=== PATIENT | female | born 2000 | race Caucasian/White ===

== ENCOUNTER 2023-06-01 10:51 | Outpatient (CLI) | payer OTHER, SELFPAY ==
--- NOTE | 2023-06-05 15:16 | P.PCNHOL_ITS ---
Holter/Event Monitor Holter/Event Monitor Date of procedure: 06/05/23 Holter/Event Procedure: 48 Hr Holter Monitor Diagnosis: Palpitation Indications: Young woman with palpitations Image/Tracing Quality: Good Finding: The patient was monitored for 48 hours. The underlying rhythm was sinus with an average heart rate of 73 beats per minute (range 643-138 ppm). On the 1 PVC was seen. Six hundred ninety-eight APCs were seen. There were 135 atrial couplets but no SVT or atrial fibrillation. No ventricular tachycardia. No pauses or AV block. No symptoms were recorded. Conclusion: 1. Fairly unremarkable Holter monitor 2. Low frequency of APCs were seen 3. No symptoms recorded
== END 2023-06-01 10:52 | disposition home or self-care (01) ==
LOC: ANHCARD 10:52
PROVIDERS: PCP Pediatrics
DX: R00.2 Palpitations (principal)
CPT/HCPCS: 93225; 93226

== ENCOUNTER 2023-08-24 10:58 | Outpatient (CLI) | payer OTHER, SELFPAY ==
--- NOTE | ~2023-08-24 | US_ITS ---
US breast BI complete DATE: 08/24/2023 11:46 INDICATION: Bilateral breast pain TECHNIQUE: Real-time imaging of both complete breasts including all 4 quadrants and subareolar areas COMPARISON: None FINDINGS: No suspicious mass or shadowing or other significant abnormality of either breast is detect ed. IMPRESSION: No sonographic evidence of malignancy Reviewed, dictated and finalized at [facility]. 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
== END 2023-08-24 10:59 | disposition home or self-care (01) ==
PROVIDERS: Visit Provider Nurse Practitioner Obstetrics & Gynecology
DX: N64.4 Mastodynia (principal)
CPT/HCPCS: 76641

== ENCOUNTER 2024-01-12 06:50 | Emergency (ER) | payer OTHER, SELFPAY ==
[2024-01-12 06:53] VITALS: BP 113/73; PULSE 91; RESP 20; TEMP 36.3; O2SAT 100
[2024-01-12 07:53] VITALS: BP 100/76; PULSE 53
[2024-01-12 07:54] VITALS: BP 100/73; BP 100/76; PULSE 74; PULSE 91; RESP 16; O2SAT 100
[2024-01-12 07:56] VITALS: BP 101/79; PULSE 75
[2024-01-12] MEDS: SODIUM CHLORIDE 0.9% IV 1,000 ML 999 ML IV CONT (08:02)
--- NOTE | 2024-01-12 08:11 | ED.HA ---
HPI - Headache General Chief Complaint: Headache Stated Complaint: headache Time Seen by Provider: 01/12/24 07:29 History of Present Illness HPI Narrative: Pt says she was just diagnosed with orthostatic hypotension. today pt developed a BAUGH at work and felt light headed like she was going to pass out. Pt denies CP ro SOB aor one sided weakness. BAUGH is mild across forehead. Pt has no history of migraines. Pt did not take anything for her BAUGH. Related Data Home Medications Medication Instructions Recorded Confirmed levonorgestrel 120 mcg-e.estradiol 1 patch transdermal Q7D 04/13/23 04/13/23 30 mcg/24 hr weekly transderm patch (Twirla) meclizine 25 mg tablet 25 mg PO TID 04/13/23 04/13/23 prochlorperazine maleate 10 mg 10 mg PO Q8H PRN 04/13/23 04/13/23 tablet (Compazine) Allergies Allergy/AdvReac Type Severity Reaction Status Date / Time blueberry Allergy Intermediate Rash Verified 04/13/23 11:19 methylphenidate Allergy Intermediate Hallucinati Verified 04/13/23 11:19 [From Concerta] ng kiwi Allergy Unknown Hallucinati Verified 04/13/23 11:19 ng Review of Systems Review of Systems: All systems reviewed & are unremarkable except as noted in HPI and below PMFSH Past Medical History Medical History Anxiety Chronic sinusitis Deviated septum STD exposure Surgical History Surgical History [place] teeth extracted (~07/2022) Family History Family History Grandparent Cerebrovascular accident Diabetes mellitus Cancer Heart disease Thyroid disorder Father Depression Anxiety Alcoholism Mother Alcoholism Anxiety Depression Asthma Sibling Alcoholism Anxiety Asthma Depression Social History Social History Social History: Caffeine-coffee Smoking status: Smoker, status unknown Tobacco type: e-cigarettes/vaping Alcohol intake: current Alcohol use details: occasionally Substance use: never Substance use type: does not use Lack of Transportation: No Lack of Food: Never True Current Housing: I Have Housing Concerned About Future Housing: No Difficulty Paying Gas/Electric Bills: No Difficulty Paying for Meds: No Currently Unemployed: No Education: High School Diploma/GED Difficulty w/ Childcare or Family Care: No Agree to blood products: Yes Exam Const: General: healthy appearing and no acute distress Nutritional Appearance: well nourished Orientation/consciousness: patient oriented x3 Limitations: no limitations HENMT: Head: normal to inspection Eyes: Conjunctivae: conjunctivae normal Pupils: Equal, round and reactive pupils present EOM: EOMs intact bilaterally Direct Ophthalmoscopy: photophobia Neck: Neck: normal visual inspection Resp: Effort & Inspection: normal respiratory effort Auscultation: clear to auscultation bilaterally Cardio: Rate: regular rate Rhythm: regular rhythm GI: GI Palp: Yes Soft to palpation and No Tenderness to palpation present (GI) Auscultation: normal bowel sounds Skin: General skin exam: normal color Rashes: no rashes Wounds: no wounds Neuro: General: patient oriented x3, moves all extremities, no meningeal signs, no focal motor deficits and CN's II-XI intact bilaterally Cranial nerves: Yes Nystagmus not present Speech: normal speech Gait exam (Neuro): Normal gait present Extrem: General: normal to inspection and no clubbing, cyanosis or edema Psych: Mental Status: mental status grossly normal Affect: normal affect Attitude: cooperative Course Vital Signs Vital signs: Vital Signs Temperature 97.4 F L 01/12/24 06:53 Pulse Rate 91 01/12/24 06:53 Respiratory Rate 20 01/12/24 06:53 Blood Pressure 113/73 01/12/24 06:53 Pulse Oximetry 100
[2024-01-12 08:30] VITALS: BP 100/76; PULSE 68; RESP 16; TEMP 36.6; O2SAT 98
--- NOTE | 2024-01-12 08:42 | PC.NURSE ---
refused all medication except NS denies BAUGH or nausea
== END 2024-01-12 08:46 | disposition home or self-care (01) ==
PROVIDERS: Emergency Provider Emergency Medicine
DX: R51.9 Headache, unspecified (principal); J32.9 Chronic sinusitis, unspecified; F17.290 Nicotine dependence, other tobacco product, uncomplicated; Z79.899 Other long term (current) drug therapy
CPT/HCPCS: 99283; J7030

== ENCOUNTER 2024-03-04 10:44 | Outpatient (CLI) | payer OTHER, SELFPAY ==
[2024-03-04 11:35] LABS: Beta HCG Quantitative < 2.39 mIU/ML
== END 2024-03-04 10:45 | disposition home or self-care (01) ==
PROVIDERS: Visit Provider Obstetrics & Gynecology
DX: Z30.9 Encounter for contraceptive management, unspecified (principal)
CPT/HCPCS: 36415; 84702

== ENCOUNTER 2025-05-20 18:03 | Emergency (ER) | payer BC, SELFPAY ==
--- OUTSIDE RECORDS SUMMARY | 2024-11-24 07:00 | XMS_ITS ---
Author Organization [facility] Address [address] [place] [address] Care Team Providers Care Market Maker Name Role Phone Roman Bc Primary Care Provider [phone] [facility], [facility] Unavailable U navailable REASON FOR VISIT FMLA paper work f/u Social History Sex Assigned At : Social History Observation Description Sex Assigned At Female Encounters Encounter Location Date Provider Diagnosis [address] [phone] 11/24/2024 Bc Owens Plan Of Treatment No Information Progress Notes * Denita PRICEDOB:2000 (24 yo F)Acc No.[id number]:11/24/2024 UNLOCKED PROGRESS NOTE Patient: Dominique FARRISail Provider: Kim Owens APN :2000 A ge:24 Y S ex:Female Date:11/24/2024 Address:[address] [place], [place] [id number] Subjective: * Chief Complaints: * 1 . FMLA paper work f/u. * Medical History: Objective: * Vitals: Assessment: Plan: * Treatment: * * Electronic signature of Bc Owens on 05/20/2025 at 06:06 PM FEED GRINDER Sign off status: Pending * Provider: Kim Owens APN Date: 0 11/24/2024 Generated for Nena Tongg/Angelica on: 1 07/20/2024 06:06 PM FEED GRINDER
[2025-05-20 18:06] VITALS: BP 110/72; PULSE 76; RESP 16; TEMP 36.8; O2SAT 100
--- OUTSIDE RECORDS SUMMARY | 2025-05-20 18:06 | XMS_ITS | Clinical Summary ---
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 Gender Identity Not on file Sexual Orientation Not on file Plan of Treatment Health Maintenance Due Date Last Done Comments Cervical Cancer Screening Pa p Smear (Age 21 to 29) Every 3 Years 1998 Cervical Cancer Screening 1998 Annual Physical 2001 HPV Vaccines (1 - 3-dose series) 2013 Hepatitis C 2016 DTaP, Tdap and Td Vaccines ( 1 - Tdap) 2017 Hepatitis B Vaccines (1 of 3 - 19+ 3-dose series) 2017 COVID-19 Vaccine ( - 2024-2 6 season) 2025 Influenza Adult (#1) 2025 Hepatitis A Vaccines Aged Out No long er eligible based on patient's age to complete this topic Meningococcal B Vaccine Aged Out No l onger eligible based on patient's age to complete this topic Meningococcal Vaccine Aged Out No tiffanie chayo eligible based on patient's age to complete this topic Pneumococcal Vaccine: Pediat rics (0 to 5 Years) and At-Risk Patients (6 to 49 Years) Aged Out No longer eligible b ased on patient's age to complete this topic RSV Immunizations Under 20 Months Aged Out No longer eligible based on patient's age to complete this topic
--- OUTSIDE RECORDS SUMMARY | 2025-05-20 18:06 | XMS_ITS | Encounter Summary ---
Author Organization [facility] Address [address] [place] [address] Care Team Providers Care Addictions Counselor Assistant Name Role Phone Kajal Lyon MD Primary Care Provider [phone] Reason for Visit * Reason Onset Date Comments SAMSON CESPEDES) 05/16/2025 PLAN EXCLUSION Encounter Details Date Type Department Care Team (Late st Contact Info) Description 05/16/2025 Telephone [facility] Clinical Support [address] [place] [phone] Chio Yen, FINISHER FINE DIAMOND DIES [address] [place] [address] SAMSON CESPEDES) (PLAN EXCLUSION) Social History Tobacco Use Types Packs/Day Years Used Date Smoking Tobacco: Never Smokeless Tobacco: Never Alcohol Use Standard Drinks/Week Comments Yes 0 (1 standard drink = 0.6 oz pur e alcohol) occassional Feeling Safe Answer Date Recorded Are you in a relationship wi th someone who hurts you emotionally and/or physically? 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 BIOLOGIST Appointment [facility] [address] [phone] Chio Yen, FINISHER FINE DIAMOND DIES [address] [place] [place] [address] documented as of this encounter Visit Diagnoses Not on filedocumented in this encounter Additional Health Concerns Assessment Noted Time PHQ-9 Depression Total Score: 4 01/27/20 24 9:00 AM CDT documented as of this encounter Care Teams Addictions Counselor Assistant Relationship Specialty Start Date End Date Kajal Lyon MD [address] [place] [phone] PCP - General Internal Medicine 12/02/23 documented as of this encounter
--- OUTSIDE RECORDS SUMMARY | 2025-05-20 18:06 | XMS_ITS | Clinical Summary ---
Author Organization [facility] Address [address] [place] [phone] Care Team Providers Care Digital Account Manager Name Role Phone Miscellaneous, Not In File Primary Care Provider Unavailable Allergies Active Allergy Reactions Criticality Noted Date Comments Blueberry Rash Medium 06/18/2023 Methylphenidate Hallucinations Medium 06/18/2023 Venlafaxine Unknown 01/30/2025 Kiwi Anaphylaxis High 06/18/2023 Medications rosuvastatin calcium (ROSUVASTATIN ORAL) Take by mouth Active famotidine (PEPCID) 40 mg tablet Take 1 tablet (40 mg total) by mouth nightly as needed for heartburn 20 tablet 3 Active ibuprofen (ADVIL,MOTRIN) 400 mg tabletIndicatio ns:Pain Take 1 tablet (400 mg total) by mouth every 6 (six) hours as needed for pain 15 tablet 5 Active Medical History Medical History Date Comments Vertigo BPPV (benign paroxysmal positional vertigo) Social History Tobacco Use Types Packs/Day Years Used Date Smoking Tobacco: Never Assessed Personal Safety Answer Date Recorded Have you ever been in or are you currently in a harmful physical or emotional relationship or is someone making you feel afraid or unsafe? 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 Gender Identity Not on file Sexual Orientation Not on file Last Filed Vital Signs Vital Sign Reading Time Taken Comments Blood Pressure 114/92 01/30/2025 11:15 AM CDT Pulse 53 01/30/2025 11:30 AM CDT Temperature 36.8 C (98.3 F) 01/30/2025 8:16 AM CDT Respiratory Rate 16 01/30/2025 8:16 AM CDT Oxygen Saturation 98% 01/30/2025 11:30 AM CDT Inhaled Oxygen Concentration - - Weight 68 kg (150 lb) 01/30/2025 8:16 AM CDT Height 157.5 cm (5' 2) 01/30/2025 8:16 AM CDT Body Mass Index 27.44 01/30/2025 8:16 AM CDT Plan of Treatment Health Maintenance Due Date Last Done Comments Cervical Cancer Screening 1998 Depression Screening 1998 Hepatitis C Screening 1998 HPV Vaccines (1 - 3-dose series) 2013 Regular Well Visit/Exam 18-64 2016 DTaP/Tdap/Td Vaccine (7 - Td or Tdap) 03/11/2020 03/11/2010, 03/14/2004, 01/05/2001, Additional history exists Covid-19 Vaccine (3 - 2024-2 6 season) 2025 06/11/2021, 05/20/2021 Influenza Vaccine (#1) 2025 05/20/2010 Hepatitis B Screening Completed 03/13/1999 , 01/14/1999, 01/14/1999, Additional history exists Pneumococcal vaccine <65 Completed 01/05/2001 Varicella Vaccines Completed 03/11/2010, 01/05/2001 Care Teams Digital Account Manager Relationship Specialty Start Date End Date Miscellaneous, Not In File PCP - General 06/18/23
--- OUTSIDE RECORDS SUMMARY | 2025-05-20 18:06 | XMS_ITS | Clinical Summary ---
Author Organization [facility] [employer] Address [address] [place] [address] Care Team Providers Care Final Inspector Name Role Phone Carlos Dickerson APRN-REAL ESTATE ADMINISTRATOR Primary Care Provider Source Comments [facility] [employer],non-owned Affiliates and Associated Physician Practices is amultiple site organization consisting of ambulatory clinics and hospital sitesin [place], [place], [place] and [place]. This disclosure is being madepursuant to the Care Everywhere program and may not contain all information available regarding this patient. Last updated 18.[facility] [employer] Allergies Active Allergy Reactions Criticality Noted Date Comments Methylphenidate Other 02/27/2022 Patient reports hallucinations Medications * Be aware that medications may not be up to date on this document. Alwaysverify current medications with the patient. gabapentin (Neurontin) 100 MG capsule gabapentin 100 mg capsule TAKE 1 CAPSULE BY MOUTH THREE TIMES A DAY FOR 30 DAYS Active Active Problems Problem Noted Date Diagnosed Date Injury of right ankle 03/05/2022 Comments Yes Social History Tobacco Use Types Packs/Day Years Used Date Smoking Tobacco: Never Smokeless Tobacco: Never Alcohol Use Standard Drinks/Week Comments Never 0 (1 standard drink = 0.6 oz pur e alcohol) AUDIT-C Answer Date Recorded Frequency of Alcohol Consumption Never 04/13/2019 Average Number of Drinks Not on file 019 Frequency of Binge Drinking Not on file 03/20 Comments Yes Sex and Gender Information Value Date Recorded Sex Assigned at Not on file Legal Sex Female 3:10 PM CDT Gender Identity Not on file Sexual Orientation Not on file Last Filed Vital Signs Vital Sign Reading Time Taken Comments Blood Pressure 96/64 02/27/2022 6:02 PM CDT Pulse 52 02/27/2022 6:02 PM CDT Temperature 36.8 C (98.2 F) 02/27/2022 6:02 PM CDT Respiratory Rate 18 02/27/2022 6:02 PM CDT Oxygen Saturation 99% 02/27/2022 6:02 PM CDT Inhaled Oxygen Concentration - - Weight 61.7 kg (136 lb) 02/27/2022 6:02 PM CDT Height 157.5 cm (5' 2) 02/27/2022 6:02 PM CDT Body Mass Index 24.87 02/27/2022 6:02 PM CDT Plan of Treatment Health Maintenance Due Date Last Done Comments HIV SCREENING 2013 HPV VACCINE (1 - 3-dose series) 2013 HEPATITIS C SCREENING 10/31/2016 DTAP/TDAP/TD VACCINES (1 - Tdap) 2017 HEPATITIS B VACCINE (1 of 3 - 19+ 3-dose series) 2017 DEPRESSION SCREENING 07/19/2024 PAP SMEAR 10/15/2024 10/15/2021 COVID-19 VACCINE (3 - 2024-2 6 season) 2025 06/11/2021, 05/20/2021 INFLUENZA VACCINE (#1) 2025 ZOSTER VACCINE (1 of 2) 2048 Respiratory Syncytial Virus (RSV) Vaccine Pt: or over 60 yrs (1 - 1-dose 75+ series) 2073 HIB VACCINE Aged Out No longer eligi ble based on patient's age to complete this topic MENINGOCOCCAL (Group B) VACCINE SHARED DECISION-MAKING Aged Out No longer eligible based on patient's age to complete this topic MENINGOCOCCAL GROUPS A/C/Y/W VACCINE Aged Out No longer eligible b ased on patient's age to complete this topic PNEUMOCOCCAL VACCINE Aged Out No long er eligible based on patient's age to complete this topic Goals Goal Patient Goal Type Associated Problems Recent Progress Patient-Stated? Author Mobility General No Darleen Ardon, RN Note: Expected end date: 07/19/2019 The goal is to maintain or improve your mobility at the optimum level for you. Interventions: Insurance [facility] MEDICAID - [place] Care Teams Final Inspector Relationship Specialty Start Date End Date Carlos Dickerson, AIRPORT OPERATIONS SPECIALIST-REAL ESTATE ADMINISTRATOR [address] [place] [phone] PCP - General 03/24/19
--- OUTSIDE RECORDS SUMMARY | 2025-05-20 18:06 | XMS_ITS | Patient Health Record ---
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 dizziness), bupropion (tachycardia), guanfacine (sedating) Current/previous therapies: Follows up with therapy every other week Examination as documented - see pertinent aspects of office visit documentation. Pertinent diagnostics: LABS MONITORED BY PCP Differential diagnoses: RECOMMENDATIONS: STOP gabapentin due to tremors and START pregabalin as prescribed to assist with anxiety/panic - educated patient/guardian on adverse effects, risks and benefits, as well as alternative treatments INCREASE fluoxetine as prescribed to assist with anxiety/depression - educated patient/guardian on adverse effects, risks and benefits, as well as alternative treatments Continue/modify other medications as prescribed - educated patient/guardian on adverse effects, risks and benefits, as well as alternative treatments Consume well balanced diet, preferably low in saturated fats (solid at room temperature, such as butter, margarine, Crisco, etc) and low in sodium (<2,000mg per day). Consume plenty of fruits/vegetables, healthy grains/whole grains, unsaturated/health y fats (liquid at room temperature, such as olive oil, sunflower seed oil, canola, vegetable, etc.). Exercise regularly - Develop an exercise routine. 30 minutes of moderate exercise (walking at a brisk pace) 5 times per week is recommended. You should work hard enough to cause a sweat but still be able to talk with others while exercising. Exercise improves overall health - improves blood pressure and blood sugar, helps control weight, reduces stress, and improves mood. Practice stress reduction techniques, such as guided imagery, journaling, aromatherapy, acupuncture/acupre ssure, deep breathing, etc. Practice healthy sleep hygiene - maintain regular routine, no caffeine after 1PM, no exercise 1-2 hours prior to bedtime, keep bedroom dark and cool, no TV or electronics while in bed. Consider melatonin as needed. Consider cognitive behavioral therapy for insomnia (CBT-I). Consider/Continue therapy. Consider/Continue substance cessation therapy as needed - contact office if desiring medication assisted therapy. Manage co-morbid conditions. Continue monitoring symptoms - report persistent or worsening/concerni ng symptoms to the office or go to the ER. For mental health CRISIS, please reach out to [phone] (National Suicide and Crisis Lifeline), 911, go to the emergency department, or contact the [facility] Crisis Unit/Team. Follow up as scheduled in 4 weeks or sooner if necessary. Follow up with PCP and/or other specialists as advised. NEXT STEP: Conisder increasing fluoxetine pending response/tolerabil ity. Consider increasing Vraylar pending response/tolerabil ity. Consider increasing pregabalin pending response/tolerabil ity. Consider adjusting hydroxyzine as needed. Consider other medication adjustments as needed. 09/12/2024 Bipolar 1 disorder, depressed (ICD-10 - F31.9) r/o BPD Duration (acute/chronic), stability (controlled/uncont rolled): Chronic, slight improvement with recent medication adjustments, still some room for improvement, see HPI Current medications/effica cy: Somewhat, room for improvement Previous medication trials: Trileptal, Effexor, Lyrica, Abilify (effective but caused hypotension), Adderall, Vyvanse, Concerta, Remeron (nausea), Wellbutrin, Adderall XR, Trazodone, Prozac, Seroquel, Zoloft, Lamictal (headache, orthostatic hypotension exacerbation), Vistaril (headache), Propranolol (ineffective), Clonidine (bad reaction), Tenex (tired), Buspar (ineffective), Focalin, Ativan, Valium, Gabapentin, Strattera (BAUGH, dizziness), bupropion (tachycardia) Current/previous therapies: Follows up with therapy every week Examination as documented - see pertinent aspects of office visit documentation. Pertinent diagnostics: LABS MONITORED BY PCP Differential diagnoses: RECOMMENDATIONS: INCREASE cariprazine as prescribed - educated patient/guardian on adverse effects, risks and benefits, as well as alternative treatments INCREASE fluoxetine as prescribed to assist with anxiety/depression - educated patient/guardian on adverse effects, risks and benefits, as well as alternative treatments Continue/modify other medications as prescribed - educated patient/guardian on adverse effects, risks and benefits, as well as alternative treatments Consume well balanced diet, preferably low in saturated fats (solid at room temperature, such as butter, margarine, Crisco, etc) and low in sodium (<2,000mg per day). Consume plenty of fruits/vegetables, healthy grains/whole grains, unsaturated/health y fats (liquid at room temperature, such as olive oil, sunflower seed oil, canola, vegetable, etc.). Exercise regularly - Develop an exercise routine. 30 minutes of moderate exercise (walking at a brisk pace) 5 times per week is recommended. You should work hard enough to cause a sweat but still be able to talk with others while exercising. Exercise improves overall health - improves blood pressure and blood sugar, helps control weight, reduces stress, and improves mood. Practice stress reduction techniques, such as guided imagery, journaling, aromatherapy, acupuncture/acupre ssure, deep breathing, etc. Practice healthy sleep hygiene - maintain regular routine, no caffeine after 1PM, no exercise 1-2 hours prior to bedtime, keep bedroom dark and cool, no TV or electronics while in bed. Consider melatonin as needed. Consider cognitive behavioral therapy for insomnia (CBT-I). Consider/Continue therapy. Consider/Continue substance cessation therapy as needed - contact office if desiring medication assisted therapy. Manage co-morbid conditions. Continue monitoring symptoms - report persistent or worsening/concerni ng symptoms to the office or go to the ER. For mental health CRISIS, please reach out to [phone] (National Suicide and Crisis Lifeline), 911, go to the emergency department, or contact the [facility] Crisis Unit/Team. Follow up as scheduled in 4 weeks or sooner if necessary. Follow up with PCP and/or other specialists as advised. NEXT STEP: Conisder increasing fluoxetine pending response/tolerabil ity. Consider increasing Vraylar pending response/tolerabil ity. Consider increasing gabapentin pending response/tolerabil ity. Consider adjusting hydroxyzine as needed. Consider other medication adjustments as needed. 08/22/2024 Bipolar 1 disorder, depressed (ICD-10 - F31.9) r/o BPD Duration (acute/chronic), stability (controlled/uncont rolled): Chronic, slight improvement since starting Vraylar, still dealing with anxiety/depression , see HPI Current medications/effica cy: Somewhat, room for improvement Previous medication trials: Trileptal, Effexor, Lyrica, Abilify (effective but caused hypotension), Adderall, Vyvanse, Concerta, Remeron (nausea), Wellbutrin, Adderall XR, Trazodone, Prozac, Seroquel, Zoloft, Lamictal (headache, orthostatic hypotension exacerbation), Vistaril (headache), Propranolol (ineffective), Clonidine (bad reaction), Tenex (tired), Buspar (ineffective), Focalin, Ativan, Valium, Gabapentin, Strattera (BAUGH, dizziness), bupropion (tachycardia) Current/previous therapies: Follows up with therapy every week Examination as documented - see pertinent aspects of office visit documentation. Pertinent diagnostics: LABS MONITORED BY PCP Differential diagnoses: DISCUSSION DURING PREVIOUS APPOINTMENT: Patient and provider discuss restarting medications as currently prescribed MINUS bupropion. Patient mentions that she generally does best with a mood stabilizer, antidepressant, and antipsychotic. Provider explained that Vraylar is an antipsychotic/mood stbilizer - Vraylar helps with mood stability AND anxiety/depression . Provider and patient discussed only restarting currently prescribed medications and considering adding antidepressant/oth er medications one at a time as needed. DISCUSSION FROM PREVIOUS VISIT: Patient reports previous success with aripiprazole and lamotrigine - couldn't continue aripiprazole due to hypotension caused by medication, wondering if there is something similar to aripiprazole that she could try RECOMMENDATIONS: INCREASE cariprazine as prescribed - educated patient/guardian on adverse effects, risks and benefits, as well as alternative treatments START fluoxetine as prescribed to assist with anxiety/depression - educated patient/guardian on adverse effects, risks and benefits, as well as alternative treatments Continue/modify other medications as prescribed - educated patient/guardian on adverse effects, risks and benefits, as well as alternative treatments Consume well balanced diet, preferably low in saturated fats (solid at room temperature, such as butter, margarine, Crisco, etc) and low in sodium (<2,000mg per day). Consume plenty of fruits/vegetables, healthy grains/whole grains, unsaturated/health y fats (liquid at room temperature, such as olive oil, sunflower seed oil, canola, vegetable, etc.). Exercise regularly - Develop an exercise routine. 30 minutes of moderate exercise (walking at a brisk pace) 5 times per week is recommended. You should work hard enough to cause a sweat but still be able to talk with others while exercising. Exercise improves overall health - improves blood pressure and blood sugar, helps control weight, reduces stress, and improves mood. Practice stress reduction techniques, such as guided imagery, journaling, aromatherapy, acupuncture/acupre ssure, deep breathing, etc. Practice healthy sleep hygiene - maintain regular routine, no caffeine after 1PM, no exercise 1-2 hours prior to bedtime, keep bedroom dark and cool, no TV or electronics while in bed. Consider melatonin as needed. Consider cognitive behavioral therapy for insomnia (CBT-I). Consider/Continue therapy. Consider/Continue substance cessation therapy as needed - contact office if desiring medication assisted therapy. Manage co-morbid conditions. Continue monitoring symptoms - report persistent or worsening/concerni ng symptoms to the office or go to the ER. For mental health CRISIS, please reach out to [phone] (National Suicide and Crisis Lifeline), 911, go to the emergency department, or contact the [facility] Crisis Unit/Team. Follow up as scheduled in 3 weeks or sooner if necessary. Follow up with PCP and/or other specialists as advised. NEXT STEP: Conisder increasing fluoxetine pending response/tolerabil ity. Consider increasing Vraylar pending response/tolerabil ity. Consider increasing gabapentin pending response/tolerabil ity. Consider adjusting hydroxyzine as needed. Consider other medication adjustments as needed. 07/27/2024 Bipolar 1 disorder, depressed (ICD-10 - F31.9) r/o BPD 07/26/2024 Bipolar 1 disorder, depressed (ICD-10 - F31.9) r/o BPD Duration (acute/chronic), stability (controlled/uncont rolled): Chronic, unchanged from previous visit due to not having received prescription for Vraylar as recently prescribed, patient also wondering about medication adjustments to assist with anxiety/panic during upcoming , see HPI Current medications/effica cy: N/A Previous medication trials: Trileptal, Effexor, Lyrica, Abilify (effective but caused hypotension), Adderall, Vyvanse, Concerta, Remeron (nausea), Wellbutrin, Adderall XR, Trazodone, Prozac, Seroquel, Zoloft, Lamictal (headache, orthostatic hypotension exacerbation), Vistaril (headache), Propranolol (ineffective), Clonidine (bad reaction), Tenex (tired), Buspar (ineffective), Focalin, Ativan, Valium, Gabapentin, Strattera (BAUGH, dizziness), bupropion (tachycardia) Current/previous therapies: Follows up with therapy every week Examination as documented - see pertinent aspects of office visit documentation. Pertinent diagnostics: LABS MONITORED BY PCP Differential diagnoses: DISCUSSION DURING PREVIOUS APPOINTMENT: Patient and provider discuss restarting medications as currently prescribed MINUS bupropion. Patient mentions that she generally does best with a mood stabilizer, antidepressant, and antipsychotic. Provider explained that Vraylar is an antipsychotic/mood stbilizer - Vraylar helps with mood stability AND anxiety/depression . Provider and patient discussed only restarting currently prescribed medications and considering adding antidepressant/oth er medications one at a time as needed. DISCUSSION FROM PREVIOUS VISIT: Patient reports previous success with aripiprazole and lamotrigine - couldn't continue aripiprazole due to hypotension caused by medication, wondering if there is something similar to aripiprazole that she could try RECOMMENDATIONS: RESTART cariprazine as prescribed - educated patient/guardian on adverse effects, risks and benefits, as well as alternative treatments CONTINUE hydroxyzine as prescribed - educated patient/guardian on adverse effects, risks and benefits, as well as alternative treatments INCREASE gabapentin as prescribed - educated patient/guardian on adverse effects, risks and benefits, as well as alternative treatments START alprazolam as prescribed - educated patient/guardian on adverse effects, risks and benefits, as well as alternative treatments Continue/modify other medications as prescribed - educated patient/guardian on adverse effects, risks and benefits, as well as alternative treatments Consume well balanced diet, preferably low in saturated fats (solid at room temperature, such as butter, margarine, Crisco, etc) and low in sodium (<2,000mg per day). Consume plenty of fruits/vegetables, healthy grains/whole grains, unsaturated/health y fats (liquid at room temperature, such as olive oil, sunflower seed oil, canola, vegetable, etc.). Exercise regularly - Develop an exercise routine. 30 minutes of moderate exercise (walking at a brisk pace) 5 times per week is recommended. You should work hard enough to cause a sweat but still be able to talk with others while exercising. Exercise improves overall health - improves blood pressure and blood sugar, helps control weight, reduces stress, and improves mood. Practice stress reduction techniques, such as guided imagery, journaling, aromatherapy, acupuncture/acupre ssure, deep breathing, etc. Practice healthy sleep hygiene - maintain regular routine, no caffeine after 1PM, no exercise 1-2 hours prior to bedtime, keep bedroom dark and cool, no TV or electronics while in bed. Consider melatonin as needed. Consider cognitive behavioral therapy for insomnia (CBT-I). Consider/Continue therapy. Consider/Continue substance cessation therapy as needed - contact office if desiring medication assisted therapy. Manage co-morbid conditions. Continue monitoring symptoms - report persistent or worsening/concerni ng symptoms to the office or go to the ER. For mental health CRISIS, please reach out to [phone] (National Suicide and Crisis Lifeline), 911, go to the emergency department, or contact the [facility] Crisis Unit/Team. Follow up as scheduled in 2 weeks or sooner if necessary. Follow up with PCP and/or other specialists as advised. NEXT STEP: Consider increasing Vraylar pending response/tolerabil ity. Consider increasing gabapentin pending response/tolerabil ity. Consider adjusting hydroxyzine as needed. Consider other medication adjustments as needed. 07/18/2024 Bipolar 1 disorder, depressed (ICD-10 - F31.9) r/o BPD Duration (acute/chronic), stability (controlled/uncont rolled): Chronic, worse since recent abrupt discontinuation of medications, bupropion caused tachycardia, see HPI Current medications/effica cy: N/A - patient stopped all medications due to tachycardia from bupropion, see HPI Previous medication trials: Trileptal, Effexor, Lyrica, Abilify (effective but caused hypotension), Adderall, Vyvanse, Concerta, Remeron (nausea), Wellbutrin, Adderall XR, Trazodone, Prozac, Seroquel, Zoloft, Lamictal (headache, orthostatic hypotension exacerbation), Vistaril (headache), Propranolol (ineffective), Clonidine (bad reaction), Tenex (tired), Buspar (ineffective), Focalin, Ativan, Valium, Gabapentin, Strattera (BAUGH, dizziness), bupropion (tachycardia) Current/previous therapies: Follows up with therapy every week Examination as documented - see pertinent aspects of office visit documentation. Pertinent diagnostics: LABS MONITORED BY PCP Differential diagnoses: Patient and provider discuss restarting medications as currently prescribed MINUS bupropion. Patient mentions that she generally does best with a mood stabilizer, antidepressant, and antipsychotic. Provider explained that Vraylar is an antipsychotic/mood stbilizer - Vraylar helps with mood stability AND anxiety/depression . Provider and patient discussed only restarting currently prescribed medications and considering adding antidepressant/oth er medications one at a time as needed. DISCUSSION FROM PREVIOUS VISIT: Patient reports previous success with aripiprazole and lamotrigine - couldn't continue aripiprazole due to hypotension caused by medication, wondering if there is something similar to aripiprazole that she could try RECOMMENDATIONS: RESTART cariprazine as prescribed - educated patient/guardian on adverse effects, risks and benefits, as well as alternative treatments CONTINUE hydroxyzine as prescribed - educated patient/guardian on adverse effects, risks and benefits, as well as alternative treatments START gabapentin as prescribed - educated patient/guardian on adverse effects, risks and benefits, as well as alternative treatments Continue/modify other medications as prescribed - educated patient/guardian on adverse effects, risks and benefits, as well as alternative treatments Consume well balanced diet, preferably low in saturated fats (solid at room temperature, such as butter, margarine, Crisco, etc) and low in sodium (<2,000mg per day). Consume plenty of fruits/vegetables, healthy grains/whole grains, unsaturated/health y fats (liquid at room temperature, such as olive oil, sunflower seed oil, canola, vegetable, etc.). Exercise regularly - Develop an exercise routine. 30 minutes of moderate exercise (walking at a brisk pace) 5 times per week is recommended. You should work hard enough to cause a sweat but still be able to talk with others while exercising. Exercise improves overall health - improves blood pressure and blood sugar, helps control weight, reduces stress, and improves mood. Practice stress reduction techniques, such as guided imagery, journaling, aromatherapy, acupuncture/acupre ssure, deep breathing, etc. Practice healthy sleep hygiene - maintain regular routine, no caffeine after 1PM, no exercise 1-2 hours prior to bedtime, keep bedroom dark and cool, no TV or electronics while in bed. Consider melatonin as needed. Consider cognitive behavioral therapy for insomnia (CBT-I). Consider/Continue therapy. Consider/Continue substance cessation therapy as needed - contact office if desiring medication assisted therapy. Manage co-morbid conditions. Continue monitoring symptoms - report persistent or worsening/concerni ng symptoms to the office or go to the ER. For mental health CRISIS, please reach out to [phone] (National Suicide and Crisis Lifeline), 911, go to the emergency department, or contact the [facility] Crisis Unit/Team. Follow up as scheduled in 2 weeks or sooner if necessary. Follow up with PCP and/or other specialists as advised. NEXT STEP: Consider increasing Vraylar pending response/tolerabil ity. Consider increasing gabapentin pending response/tolerabil ity. Consider adjusting hydroxyzine as needed. Consider other medication adjustments as needed. 12/12/2024 Anxiety (ICD-10 - F41.9) See assessment and plan for bipolar I disorder 12/12/2024 Bipolar 1 disorder, depressed (ICD-10 - F31.9) r/o BPD Duration (acute/chronic), stability (controlled/uncont rolled): Chronic, anxiety/depression /ADHD remain stable, sleep not improved with starting doxepin, still some room for improvement, see HPI Current medications/effica cy: Somewhat, room for improvement Previous medication trials: Trileptal, Effexor (possible allergy?), Lyrica, Abilify (effective but caused hypotension), Adderall, Vyvanse, Concerta, Remeron (nausea), Wellbutrin (tried in adolescence, ineffective), Adderall XR, Trazodone, Prozac (unsure how this made her feel as she was on a lot of meds), Seroquel, Zoloft (ineffective), Lamictal (headache, exacerbation of orthostatic hypotension), Vistaril (headache), Propranolol (ineffective), Clonidine (bad reaction), Tenex (tired), Buspar (ineffective), Focalin, Ativan, Valium, Gabapentin (built up a tolerance in the past so became ineffective, been off for about 2 years, also causes tremors), Strattera (BAUGH, dizziness), bupropion (tachycardia), guanfacine (sedating) Current/previous therapies: Follows up with therapy every other week Examination as documented - see pertinent aspects of office visit documentation. 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 8 HOURS OF PTO FOR DOING SO, WILL PLAN TO HAVE RESULTS FAXED TO OFFICE Differential diagnoses: RECOMMENDATIONS: STOP doxepin due to inefficacy as discussed and START ramelteon as prescribed to assist with sleep - ADJUST alprazolam as prescribed to assist with sleep/anxiety/garcia c, ONLY TO BE USED ONCE NIGHTLY FOR SLEEP AND NEEDED FOR PANIC- educated patient/guardian on adverse effects, risks and benefits, as well as alternative treatments Continue/modify other medications as prescribed - educated patient/guardian on adverse effects, risks and benefits, as well as alternative treatments Consume well balanced diet, preferably low in saturated fats (solid at room temperature, such as butter, margarine, Crisco, etc) and low in sodium (<2,000mg per day). Consume plenty of fruits/vegetables, healthy grains/whole grains, unsaturated/health y fats (liquid at room temperature, such as olive oil, sunflower seed oil, canola, vegetable, etc.). Exercise regularly - Develop an exercise routine. 30 minutes of moderate exercise (walking at a brisk pace) 5 times per week is recommended. You should work hard enough to cause a sweat but still be able to talk with others while exercising. Exercise improves overall health - improves blood pressure and blood sugar, helps control weight, reduces stress, and improves mood. Practice stress reduction techniques, such as guided imagery, journaling, aromatherapy, acupuncture/acupre ssure, deep breathing, etc. Practice healthy sleep hygiene - maintain regular routine, no caffeine after 1PM, no exercise 1-2 hours prior to bedtime, keep bedroom dark and cool, no TV or electronics while in bed. Consider melatonin as needed. Consider cognitive behavioral therapy for insomnia (CBT-I). Consider/Continue therapy. Consider/Continue substance cessation therapy as needed - contact office if desiring medication assisted therapy. Manage co-morbid conditions. Continue monitoring symptoms - report persistent or worsening/concerni ng symptoms to the office or go to the ER. For mental health CRISIS, please reach out to [phone] (National Suicide and Crisis Lifeline), 911, go to the emergency department, or contact the [facility] Crisis Unit/Team. Follow up as scheduled in 2 months or sooner if necessary - patient requesting 2 month follow up due to starting a new job and having a lapse in insurance (new insurance won't be active until 2 months from now) Follow up with PCP and/or other specialists as advised. NEXT STEP: Conisder increasing doxepin pending response/tolerabil ity. Consider other medication adjustments as needed. 07/18/2024 Anxiety (ICD-10 - F41.9) See assessment and plan for bipolar I disorder 07/26/2024 Anxiety (ICD-10 - F41.9) See assessment and plan for bipolar I disorder 08/22/2024 Anxiety (ICD-10 - F41.9) See assessment and plan for bipolar I disorder 09/12/2024 Anxiety (ICD-10 - F41.9) See assessment and plan for bipolar I disorder 10/26/2024 Obsessional thoughts (ICD-10 - F42.8) See assessment and plan for bipolar I disorder 10/04/2024 Anxiety (ICD-10 - F41.9) See assessment and plan for bipolar I disorder 11/10/2024 Bipolar 1 disorder, depressed (ICD-10 - F31.9) r/o BPD Duration (acute/chronic), stability (controlled/uncont rolled): Chronic, improvement with recent medication adjustments, still some room for improvement, see HPI Current medications/effica cy: Somewhat, room for improvement Previous medication trials: Trileptal, Effexor (possible allergy?), Lyrica, Abilify (effective but caused hypotension), Adderall, Vyvanse, Concerta, Remeron (nausea), Wellbutrin (tried in adolescence, ineffective), Adderall XR, Trazodone, Prozac (unsure how this made her feel as she was on a lot of meds), Seroquel, Zoloft (ineffective), Lamictal (headache, exacerbation of orthostatic hypotension), Vistaril (headache), Propranolol (ineffective), Clonidine (bad reaction), Tenex (tired), Buspar (ineffective), Focalin, Ativan, Valium, Gabapentin (built up a tolerance in the past so became ineffective, been off for about 2 years, also causes tremors), Strattera (BAUGH, dizziness), bupropion (tachycardia), guanfacine (sedating) Current/previous therapies: Follows up with therapy every other week Examination as documented - see pertinent aspects of office visit documentation. 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 8 HOURS OF PTO FOR DOING SO, WILL PLAN TO HAVE RESULTS FAXED TO OFFICE Differential diagnoses: RECOMMENDATIONS: INCREASE pregabaline as prescribed to assist with anxiety/panic/slee p, USE THIS BEFORE USING ALPRAZOLAM - educated patient/guardian on adverse effects, risks and benefits, as well as alternative treatments INCREASE alprazolam as prescribed to assist with anxiety/panic, ONLY TO BE USED NEEDED - educated patient/guardian on adverse effects, risks and benefits, as well as alternative treatments Continue/modify other medications as prescribed - educated patient/guardian on adverse effects, risks and benefits, as well as alternative treatments Consume well balanced diet, preferably low in saturated fats (solid at room temperature, such as butter, margarine, Crisco, etc) and low in sodium (<2,000mg per day). Consume plenty of fruits/vegetables, healthy grains/whole grains, unsaturated/health y fats (liquid at room temperature, such as olive oil, sunflower seed oil, canola, vegetable, etc.). Exercise regularly - Develop an exercise routine. 30 minutes of moderate exercise (walking at a brisk pace) 5 times per week is recommended. You should work hard enough to cause a sweat but still be able to talk with others while exercising. Exercise improves overall health - improves blood pressure and blood sugar, helps control weight, reduces stress, and improves mood. Practice stress reduction techniques, such as guided imagery, journaling, aromatherapy, acupuncture/acupre ssure, deep breathing, etc. Practice healthy sleep hygiene - maintain regular routine, no caffeine after 1PM, no exercise 1-2 hours prior to bedtime, keep bedroom dark and cool, no TV or electronics while in bed. Consider melatonin as needed. Consider cognitive behavioral therapy for insomnia (CBT-I). Consider/Continue therapy. Consider/Continue substance cessation therapy as needed - contact office if desiring medication assisted therapy. Manage co-morbid conditions. Continue monitoring symptoms - report persistent or worsening/concerni ng symptoms to the office or go to the ER. For mental health CRISIS, please reach out to [phone] (National Suicide and Crisis Lifeline), 911, go to the emergency department, or contact the [facility] Crisis Unit/Team. Follow up as scheduled in 4 weeks or sooner if necessary. Follow up with PCP and/or other specialists as advised. NEXT STEP: Conisder increasing fluoxetine pending response/tolerabil ity. Consider increasing Vraylar pending response/tolerabil ity. Consider increasing pregabalin pending response/tolerabil ity. Consider adjusting hydroxyzine as needed. Consider other medication adjustments as needed. 11/21/2024 Bipolar 1 disorder, depressed (ICD-10 - F31.9) r/o BPD Duration (acute/chronic), stability (controlled/uncont rolled): Chronic, improvement with recent medication adjustments, still some room for improvement, see HPI Current medications/effica cy: Somewhat, room for improvement Previous medication trials: Trileptal, Effexor (possible allergy?), Lyrica, Abilify (effective but caused hypotension), Adderall, Vyvanse, Concerta, Remeron (nausea), Wellbutrin (tried in adolescence, ineffective), Adderall XR, Trazodone, Prozac (unsure how this made her feel as she was on a lot of meds), Seroquel, Zoloft (ineffective), Lamictal (headache, exacerbation of orthostatic hypotension), Vistaril (headache), Propranolol (ineffective), Clonidine (bad reaction), Tenex (tired), Buspar (ineffective), Focalin, Ativan, Valium, Gabapentin (built up a tolerance in the past so became ineffective, been off for about 2 years, also causes tremors), Strattera (BAUGH, dizziness), bupropion (tachycardia), guanfacine (sedating) Current/previous therapies: Follows up with therapy every other week Examination as documented - see pertinent aspects of office visit documentation. 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 8 HOURS OF PTO FOR DOING SO, WILL PLAN TO HAVE RESULTS FAXED TO OFFICE Differential diagnoses: RECOMMENDATIONS: START zolpidem as prescribed to assist with sleep, start with zolpidem alone, can add pregablin if needed - educated patient/guardian on adverse effects, risks and benefits, as well as alternative treatments CONTINUE alprazolam as prescribed to assist with anxiety/panic, ONLY TO BE USED NEEDED - educated patient/guardian on adverse effects, risks and benefits, as well as alternative treatments Continue/modify other medications as prescribed - educated patient/guardian on adverse effects, risks and benefits, as well as alternative treatments Consume well balanced diet, preferably low in saturated fats (solid at room temperature, such as butter, margarine, Crisco, etc) and low in sodium (<2,000mg per day). Consume plenty of fruits/vegetables, healthy grains/whole grains, unsaturated/health y fats (liquid at room temperature, such as olive oil, sunflower seed oil, canola, vegetable, etc.). Exercise regularly - Develop an exercise routine. 30 minutes of moderate exercise (walking at a brisk pace) 5 times per week is recommended. You should work hard enough to cause a sweat but still be able to talk with others while exercising. Exercise improves overall health - improves blood pressure and blood sugar, helps control weight, reduces stress, and improves mood. Practice stress reduction techniques, such as guided imagery, journaling, aromatherapy, acupuncture/acupre ssure, deep breathing, etc. Practice healthy sleep hygiene - maintain regular routine, no caffeine after 1PM, no exercise 1-2 hours prior to bedtime, keep bedroom dark and cool, no TV or electronics while in bed. Consider melatonin as needed. Consider cognitive behavioral therapy for insomnia (CBT-I). Consider/Continue therapy. Consider/Continue substance cessation therapy as needed - contact office if desiring medication assisted therapy. Manage co-morbid conditions. Continue monitoring symptoms - report persistent or worsening/concerni ng symptoms to the office or go to the ER. For mental health CRISIS, please reach out to [phone] ([employer] Suicide and Crisis Lifeline), 911, go to the emergency department, or contact the [facility] Crisis Unit/Team. Follow up as scheduled in 2 weeks or sooner if necessary. Follow up with PCP and/or other specialists as advised. NEXT STEP: Conisder increasing fluoxetine pending response/tolerabil ity. Consider increasing Vraylar pending response/tolerabil ity. Consider increasing pregabalin pending response/tolerabil ity. Consider adjusting hydroxyzine as needed. Consider other medication adjustments as needed. 06/14/2024 Anxiety (ICD-10 - F41.9) See assessment and plan for bipolar I disorder 11/28/2024 Bipolar 1 disorder, depressed (ICD-10 - F31.9) r/o BPD Duration (acute/chronic), stability (controlled/uncont rolled): Chronic, anxiety/depression /ADHD remain stable, sleep not improved with starting zolpidem, still some room for improvement, see HPI Current medications/effica cy: Somewhat, room for improvement Previous medication trials: Trileptal, Effexor (possible allergy?), Lyrica, Abilify (effective but caused hypotension), Adderall, Vyvanse, Concerta, Remeron (nausea), Wellbutrin (tried in adolescence, ineffective), Adderall XR, Trazodone, Prozac (unsure how this made her feel as she was on a lot of meds), Seroquel, Zoloft (ineffective), Lamictal (headache, exacerbation of orthostatic hypotension), Vistaril (headache), Propranolol (ineffective), Clonidine (bad reaction), Tenex (tired), Buspar (ineffective), Focalin, Ativan, Valium, Gabapentin (built up a tolerance in the past so became ineffective, been off for about 2 years, also causes tremors), Strattera (BAUGH, dizziness), bupropion (tachycardia), guanfacine (sedating) Current/previous therapies: Follows up with therapy every other week Examination as documented - see pertinent aspects of office visit documentation. 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 8 HOURS OF PTO FOR DOING SO, WILL PLAN TO HAVE RESULTS FAXED TO OFFICE Differential diagnoses: RECOMMENDATIONS: STOP zolpidem due to inefficacy and START doxepin to assist with sleep, can add pregablin if needed - educated patient/guardian on adverse effects, risks and benefits, as well as alternative treatments CONTINUE alprazolam as prescribed to assist with anxiety/panic, ONLY TO BE USED NEEDED - educated patient/guardian on adverse effects, risks and benefits, as well as alternative treatments Continue/modify other medications as prescribed - educated patient/guardian on adverse effects, risks and benefits, as well as alternative treatments Consume well balanced diet, preferably low in saturated fats (solid at room temperature, such as butter, margarine, Crisco, etc) and low in sodium (<2,000mg per day). Consume plenty of fruits/vegetables, healthy grains/whole grains, unsaturated/health y fats (liquid at room temperature, such as olive oil, sunflower seed oil, canola, vegetable, etc.). Exercise regularly - Develop an exercise routine. 30 minutes of moderate exercise (walking at a brisk pace) 5 times per week is recommended. You should work hard enough to cause a sweat but still be able to talk with others while exercising. Exercise improves overall health - improves blood pressure and blood sugar, helps control weight, reduces stress, and improves mood. Practice stress reduction techniques, such as guided imagery, journaling, aromatherapy, acupuncture/acupre ssure, deep breathing, etc. Practice healthy sleep hygiene - maintain regular routine, no caffeine after 1PM, no exercise 1-2 hours prior to bedtime, keep bedroom dark and cool, no TV or electronics while in bed. Consider melatonin as needed. Consider cognitive behavioral therapy for insomnia (CBT-I). Consider/Continue therapy. Consider/Continue substance cessation therapy as needed - contact office if desiring medication assisted therapy. Manage co-morbid conditions. Continue monitoring symptoms - report persistent or worsening/concerni ng symptoms to the office or go to the ER. For mental health CRISIS, please reach out to [phone] ([employer] Suicide and Crisis Lifeline), 911, go to the emergency department, or contact the [facility] Crisis Unit/Team. Follow up as scheduled in 2 weeks or sooner if necessary. Follow up with PCP and/or other specialists as advised. NEXT STEP: Conisder increasing doxepin pending response/tolerabil ity. Consider other medication adjustments as needed. 06/14/2024 Attention deficit hyperactivity disorder (ADHD), combined type (ICD-10 - F90.2) Duration (acute/chronic), stability (controlled/uncont rolled): Chronic, previous history of Adderall abuse - not currently on medications for this, requesting trial on nonstimulant, see HPI Current medications/effica cy: N/A Previous medication trials: Trileptal, Effexor, Lyrica, Abilify (effective but caused hypotension), Adderall, Vyvanse, Concerta, Remeron (nausea), Wellbutrin, Adderall XR, Trazodone, Prozac, Seroquel, Zoloft, Lamictal (headache, orthostatic hypotension exacerbation), Vistaril (headache), Propranolol (ineffective), Clonidine (bad reaction), Tenex (tired), Buspar (ineffective), Focalin, Ativan, Valium, Gabapentin, Strattera (BAUGH, dizziness) Current/previous therapies: Follows up with therapy every other week Examination as documented - see pertinent aspects of office visit documentation. Pertinent diagnostics: LABS MONITORED BY PCP Differential diagnoses: RECOMMENDATIONS: START bupropion as prescribed - educated patient/guardian on adverse effects, risks and benefits, as well as alternative treatments Continue/modify other medications as prescribed - educated patient/guardian on adverse effects, risks and benefits, as well as alternative treatments Consume well balanced diet, preferably low in saturated fats (solid at room temperature, such as butter, margarine, Crisco, etc) and low in sodium (<2,000mg per day). Consume plenty of fruits/vegetables, healthy grains/whole grains, unsaturated/health y fats (liquid at room temperature, such as olive oil, sunflower seed oil, canola, vegetable, etc.). Exercise regularly - Develop an exercise routine. 30 minutes of moderate exercise (walking at a brisk pace) 5 times per week is recommended. You should work hard enough to cause a sweat but still be able to talk with others while exercising. Exercise improves overall health - improves blood pressure and blood sugar, helps control weight, reduces stress, and improves mood. Practice stress reduction techniques, such as guided imagery, journaling, aromatherapy, acupuncture/acupre ssure, deep breathing, etc. Practice healthy sleep hygiene - maintain regular routine, no caffeine after 1PM, no exercise 1-2 hours prior to bedtime, keep bedroom dark and cool, no TV or electronics while in bed. Consider melatonin as needed. Consider cognitive behavioral therapy for insomnia (CBT-I). Consider/Continue therapy. Consider/Continue substance cessation therapy as needed - contact office if desiring medication assisted therapy. Manage co-morbid conditions. Continue monitoring symptoms - report persistent or worsening/concerni ng symptoms to the office or go to the ER. For mental health CRISIS, please reach out to [phone] (National Suicide and Crisis Lifeline), 911, go to the emergency department, or contact the [facility] Crisis Unit/Team. Follow up as scheduled in 4 weeks or sooner if necessary. Follow up with PCP and/or other specialists as advised. NEXT STEP: Consider increasing bupropion pending response/tolerabil ity. Consider other medication adjustments as needed. 11/28/2024 Obsessional thoughts (ICD-10 - F42.8) See assessment and plan for bipolar I disorder 11/21/2024 Obsessional thoughts (ICD-10 - F42.8) See assessment and plan for bipolar I disorder 10/04/2024 Attention deficit hyperactivity disorder (ADHD), combined type (ICD-10 - F90.2) Duration (acute/chronic), stability (controlled/uncont rolled): Chronic, recently tried on bupropion which caused tachycardia, patient subsequently discontinued all medications abruptly, see HPI Current medications/effica cy: N/A Previous medication trials: Trileptal, Effexor, Lyrica, Abilify (effective but caused hypotension), Adderall, Vyvanse, Concerta, Remeron (nausea), Wellbutrin, Adderall XR, Trazodone, Prozac, Seroquel, Zoloft, Lamictal (headache, orthostatic hypotension exacerbation), Vistaril (headache), Propranolol (ineffective), Clonidine (bad reaction), Tenex (tired), Buspar (ineffective), Focalin, Ativan, Valium, Gabapentin, Strattera (BAUGH, dizziness), bupropion (tachycardia) Current/previous therapies: Follows up with therapy every other week Examination as documented - see pertinent aspects of office visit documentation. Pertinent diagnostics: LABS MONITORED BY PCP Differential diagnoses: Patient has difficulties with orthostatic hypotension - patient not a good candidate for centrally acting alpha 2 agonists due to blood pressure lowering effects. Not candidate for stimulants due to history of abuse. Not candidate of bupropion and possibly other nonstimulants affecting NE levels due to tachycardia with bupropion therapy. RECOMMENDATIONS: Continue/modify medications as prescribed - educated patient/guardian on adverse effects, risks and benefits, as well as alternative treatments Consume well balanced diet, preferably low in saturated fats (solid at room temperature, such as butter, margarine, Crisco, etc) and low in sodium (<2,000mg per day). Consume plenty of fruits/vegetables, healthy grains/whole grains, unsaturated/health y fats (liquid at room temperature, such as olive oil, sunflower seed oil, canola, vegetable, etc.). Exercise regularly - Develop an exercise routine. 30 minutes of moderate exercise (walking at a brisk pace) 5 times per week is recommended. You should work hard enough to cause a sweat but still be able to talk with others while exercising. Exercise improves overall health - improves blood pressure and blood sugar, helps control weight, reduces stress, and improves mood. Practice stress reduction techniques, such as guided imagery, journaling, aromatherapy, acupuncture/acupre ssure, deep breathing, etc. Practice healthy sleep hygiene - maintain regular routine, no caffeine after 1PM, no exercise 1-2 hours prior to bedtime, keep bedroom dark and cool, no TV or electronics while in bed. Consider melatonin as needed. Consider cognitive behavioral therapy for insomnia (CBT-I). Consider/Continue therapy. Consider/Continue substance cessation therapy as needed - contact office if desiring medication assisted therapy. Manage co-morbid conditions. Continue monitoring symptoms - report persistent or worsening/concerni ng symptoms to the office or go to the ER. For mental health CRISIS, please reach out to [phone] ([employer] Suicide and Crisis Lifeline), 911, go to the emergency department, or contact the [facility] Crisis Unit/Team. Follow up as scheduled in 4 weeks or sooner if necessary. Follow up with PCP and/or other specialists as advised. NEXT STEP: Consider other medication adjustments as needed. 10/26/2024 Attention deficit hyperactivity disorder (ADHD), combined type (ICD-10 - F90.2) Duration (acute/chronic), stability (controlled/uncont rolled): Chronic, previously tried on bupropion which caused tachycardia, patient subsequently discontinued all medications abruptly - patient wanting to try stimulant therapy again, previously used inappropriately due to fear of sleeping, no longer has this issue, monitors herself closely for this and verbalizes that she will discontinue stimulant therapy if this issue starts recurring Current medications/effica cy: N/A Previous medication trials: Trileptal, Effexor, Lyrica, Abilify (effective but caused hypotension), Adderall, Vyvanse, Concerta, Remeron (nausea), Wellbutrin, Adderall XR, Trazodone, Prozac, Seroquel, Zoloft, Lamictal (headache, orthostatic hypotension exacerbation), Vistaril (headache), Propranolol (ineffective), Clonidine (bad reaction), Tenex (tired), Buspar (ineffective), Focalin, Ativan, Valium, Gabapentin, Strattera (BAUGH, dizziness), bupropion (tachycardia) Current/previous therapies: Follows up with therapy every other week Examination as documented - see pertinent aspects of office visit documentation. 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 8 HOURS OF PTO FOR DOING SO, WILL PLAN TO HAVE RESULTS FAXED TO OFFICE Differential diagnoses: Patient has difficulties with orthostatic hypotension - patient not a good candidate for centrally acting alpha 2 agonists due to blood pressure lowering effects. Not candidate for stimulants due to history of abuse. Not candidate of bupropion and possibly other nonstimulants affecting NE levels due to tachycardia with bupropion therapy. RECOMMENDATIONS: START Vyvanse as prescribed to assist with ADHD - educated patient/guardian on adverse effects, risks and benefits, as well as alternative treatments Continue/modify medications as prescribed - educated patient/guardian on adverse effects, risks and benefits, as well as alternative treatments Consume well balanced diet, preferably low in saturated fats (solid at room temperature, such as butter, margarine, Crisco, etc) and low in sodium (<2,000mg per day). Consume plenty of fruits/vegetables, healthy grains/whole grains, unsaturated/health y fats (liquid at room temperature, such as olive oil, sunflower seed oil, canola, vegetable, etc.). Exercise regularly - Develop an exercise routine. 30 minutes of moderate exercise (walking at a brisk pace) 5 times per week is recommended. You should work hard enough to cause a sweat but still be able to talk with others while exercising. Exercise improves overall health - improves blood pressure and blood sugar, helps control weight, reduces stress, and improves mood. Practice stress reduction techniques, such as guided imagery, journaling, aromatherapy, acupuncture/acupre ssure, deep breathing, etc. Practice healthy sleep hygiene - maintain regular routine, no caffeine after 1PM, no exercise 1-2 hours prior to bedtime, keep bedroom dark and cool, no TV or electronics while in bed. Consider melatonin as needed. Consider cognitive behavioral therapy for insomnia (CBT-I). Consider/Continue therapy. Consider/Continue substance cessation therapy as needed - contact office if desiring medication assisted therapy. Manage co-morbid conditions. Continue monitoring symptoms - report persistent or worsening/concerni ng symptoms to the office or go to the ER. For mental health CRISIS, please reach out to [phone] (National Suicide and Crisis Lifeline), 911, go to the emergency department, or contact the [facility] Crisis Unit/Team. Follow up as scheduled in 4 weeks or sooner if necessary. Follow up with PCP and/or other specialists as advised. NEXT STEP: Consider other medication adjustments as needed. UDS and update CSA as needed at follow up. 09/12/2024 Attention deficit hyperactivity disorder (ADHD), combined type (ICD-10 - F90.2) Duration (acute/chronic), stability (controlled/uncont rolled): Chronic, recently tried on bupropion which caused tachycardia, patient subsequently discontinued all medications abruptly, see HPI Current medications/effica cy: N/A Previous medication trials: Trileptal, Effexor, Lyrica, Abilify (effective but caused hypotension), Adderall, Vyvanse, Concerta, Remeron (nausea), Wellbutrin, Adderall XR, Trazodone, Prozac, Seroquel, Zoloft, Lamictal (headache, orthostatic hypotension exacerbation), Vistaril (headache), Propranolol (ineffective), Clonidine (bad reaction), Tenex (tired), Buspar (ineffective), Focalin, Ativan, Valium, Gabapentin, Strattera (BAUGH, dizziness), bupropion (tachycardia) Current/previous therapies: Follows up with therapy every week Examination as documented - see pertinent aspects of office visit documentation. Pertinent diagnostics: LABS MONITORED BY PCP Differential diagnoses: Patient has difficulties with orthostatic hypotension - patient not a good candidate for centrally acting alpha 2 agonists due to blood pressure lowering effects. Not candidate for stimulants due to history of abuse. Not candidate of bupropion and possibly other nonstimulants affecting NE levels due to tachycardia with bupropion therapy. RECOMMENDATIONS: Continue/modify medications as prescribed - educated patient/guardian on adverse effects, risks and benefits, as well as alternative treatments Consume well balanced diet, preferably low in saturated fats (solid at room temperature, such as butter, margarine, Crisco, etc) and low in sodium (<2,000mg per day). Consume plenty of fruits/vegetables, healthy grains/whole grains, unsaturated/health y fats (liquid at room temperature, such as olive oil, sunflower seed oil, canola, vegetable, etc.). Exercise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 Lifeline), 911, go to the emergency department, or contact the [facility] Crisis Unit/Team. Follow up as scheduled or sooner if necessary. Follow up with PCP and/or other specialists as advised. NEXT STEP: Consider MAT as needed. 11/21/2024 Attention deficit hyperactivity disorder (ADHD), combined type (ICD-10 - F90.2) Duration (acute/chronic), stability (controlled/uncont rolled): Chronic, much improved since starting low dose Vyvanse, provided to patient daily by partner, patient reports no urges/desire to misuse Vyvanse (previously used to prevent sleep, which patient was previously afraid of, see previous HPI) Current medications/effica cy: Yes Previous medication trials: Trileptal, Effexor, Lyrica, Abilify (effective but caused hypotension), Adderall, Vyvanse, Concerta, Remeron (nausea), Wellbutrin, Adderall XR, Trazodone, Prozac, Seroquel, Zoloft, Lamictal (headache, orthostatic hypotension exacerbation), Vistaril (headache), Propranolol (ineffective), Clonidine (bad reaction), Tenex (tired), Buspar (ineffective), Focalin, Ativan, Valium, Gabapentin, Strattera (BAUGH, dizziness), bupropion (tachycardia) Current/previous therapies: Follows up with therapy every other week Examination as documented - see pertinent aspects of office visit documentation. 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 8 HOURS OF PTO FOR DOING SO, WILL PLAN TO HAVE RESULTS FAXED TO OFFICE Differential diagnoses: RECOMMENDATIONS: CONTINUE Vyvanse as prescribed to assist with ADHD - educated patient/guardian on adverse effects, risks and benefits, as well as alternative treatments Continue/modify medications as prescribed - educated patient/guardian on adverse effects, risks and benefits, as well as alternative treatments Consume well balanced diet, preferably low in saturated fats (solid at room temperature, such as butter, margarine, Crisco, etc) and low in sodium (<2,000mg per day). Consume plenty of fruits/vegetables, healthy grains/whole grains, unsaturated/health y fats (liquid at room temperature, such as olive oil, sunflower seed oil, canola, vegetable, etc.). Exercise regularly - Develop an exercise routine. 30 minutes of moderate exercise (walking at a brisk pace) 5 times per week is recommended. You should work hard enough to cause a sweat but still be able to talk with others while exercising. Exercise improves overall health - improves blood pressure and blood sugar, helps control weight, reduces stress, and improves mood. Practice stress reduction techniques, such as guided imagery, journaling, aromatherapy, acupuncture/acupre ssure, deep breathing, etc. Practice healthy sleep hygiene - maintain regular routine, no caffeine after 1PM, no exercise 1-2 hours prior to bedtime, keep bedroom dark and cool, no TV or electronics while in bed. Consider melatonin as needed. Consider cognitive behavioral therapy for insomnia (CBT-I). Consider/Continue therapy. Consider/Continue substance cessation therapy as needed - contact office if desiring medication assisted therapy. Manage co-morbid conditions. Continue monitoring symptoms - report persistent or worsening/concerni ng symptoms to the office or go to the ER. For mental health CRISIS, please reach out to [phone] ([employer] Suicide and Crisis Lifeline), 911, go to the emergency department, or contact the [facility] Crisis Unit/Team. Follow up as scheduled in 4 weeks or sooner if necessary. Follow up with PCP and/or other specialists as advised. NEXT STEP: Consider other medication adjustments as needed. Consider discontinuation of Vyvanse if concerned about misuse. 11/28/2024 Attention deficit hyperactivity disorder (ADHD), combined type (ICD-10 - F90.2) Duration (acute/chronic), stability (controlled/uncont rolled): Chronic, much improved since starting low dose Vyvanse, provided to patient daily by partner, patient reports no urges/desire to misuse Vyvanse (previously used to prevent sleep, which patient was previously afraid of, see previous HPI) Current medications/effica cy: Yes Previous medication trials: Trileptal, Effexor, Lyrica, Abilify (effective but caused hypotension), Adderall, Vyvanse, Concerta, Remeron (nausea), Wellbutrin, Adderall XR, Trazodone, Prozac, Seroquel, Zoloft, Lamictal (headache, orthostatic hypotension exacerbation), Vistaril (headache), Propranolol (ineffective), Clonidine (bad reaction), Tenex (tired), Buspar (ineffective), Focalin, Ativan, Valium, Gabapentin, Strattera (BAUGH, dizziness), bupropion (tachycardia) Current/previous therapies: Follows up with therapy every other week Examination as documented - see pertinent aspects of office visit documentation. 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 8 HOURS OF PTO FOR DOING SO, WILL PLAN TO HAVE RESULTS FAXED TO OFFICE Differential diagnoses: RECOMMENDATIONS: CONTINUE Vyvanse as prescribed to assist with ADHD - educated patient/guardian on adverse effects, risks and benefits, as well as alternative treatments Continue/modify medications as prescribed - educated patient/guardian on adverse effects, risks and benefits, as well as alternative treatments Consume well balanced diet, preferably low in saturated fats (solid at room temperature, such as butter, margarine, Crisco, etc) and low in sodium (<2,000mg per day). Consume plenty of fruits/vegetables, healthy grains/whole grains, unsaturated/health y fats (liquid at room temperature, such as olive oil, sunflower seed oil, canola, vegetable, etc.). Exercise regularly - Develop an exercise routine. 30 minutes of moderate exercise (walking at a brisk pace) 5 times per week is recommended. You should work hard enough to cause a sweat but still be able to talk with others while exercising. Exercise improves overall health - improves blood pressure and blood sugar, helps control weight, reduces stress, and improves mood. Practice stress reduction techniques, such as guided imagery, journaling, aromatherapy, acupuncture/acupre ssure, deep breathing, etc. Practice healthy sleep hygiene - maintain regular routine, no caffeine after 1PM, no exercise 1-2 hours prior to bedtime, keep bedroom dark and cool, no TV or electronics while in bed. Consider melatonin as needed. Consider cognitive behavioral therapy for insomnia (CBT-I). Consider/Continue therapy. Consider/Continue substance cessation therapy as needed - contact office if desiring medication assisted therapy. Manage co-morbid conditions. Continue monitoring symptoms - report persistent or worsening/concerni ng symptoms to the office or go to the ER. For mental health CRISIS, please reach out to [phone] ([employer] Suicide and Crisis Lifeline), 911, go to the emergency department, or contact the [facility] Crisis Unit/Team. Follow up as scheduled or sooner if necessary. Follow up with PCP and/or other specialists as advised. NEXT STEP: Consider other medication adjustments as needed. Consider discontinuation of Vyvanse if concerned about misuse. 11/28/2024 Nicotine dependence (ICD-10 - F17.200) Duration (acute/chronic), stability (controlled/uncont rolled): Chronic, Vapes, daily, has been vaping since 2019 Current medications/effica cy: N/A Previous medication trials: N/A RECOMMENDATIONS: Consider substance cessation therapy as needed - contact office if desiring medication assisted therapy. Manage co-morbid conditions. Continue monitoring symptoms - report persistent or worsening/concerni ng symptoms to the office or go to the ER. For mental health CRISIS, please reach out to [phone] ([employer] Suicide and Crisis Lifeline), 911, go to the emergency department, or contact the [facility] Crisis Unit/Team. Follow up as scheduled or sooner if necessary. Follow up with PCP and/or other specialists as advised. NEXT STEP: Consider MAT as needed. 11/21/2024 Nicotine dependence (ICD-10 - F17.200) Duration (acute/chronic), stability (controlled/uncont rolled): Chronic, Vapes, daily, has been vaping since 2019 - verbalized no intention to quit at this time Current medications/effica cy: N/A Previous medication trials: N/A RECOMMENDATIONS: Consider substance cessation therapy as needed - contact office if desiring medication assisted therapy. Manage co-morbid conditions. Continue monitoring symptoms - report persistent or worsening/concerni ng symptoms to the office or go to the ER. For mental health CRISIS, please reach out to [phone] ([place] Suicide and Crisis Lifeline), 911, go to the emergency department, or contact the [facility] Crisis Unit/Team. Follow up as scheduled or sooner if necessary. Follow up with PCP and/or other specialists as advised. NEXT STEP: Consider MAT as needed. 11/10/2024 Nicotine dependence (ICD-10 - F17.200) Duration (acute/chronic), stability (controlled/uncont rolled): Chronic, Vapes, daily, has been vaping since 2019 - verbalized no intention to quit at this time Current medications/effica cy: N/A Previous medication trials: N/A RECOMMENDATIONS: Consider substance cessation therapy as needed - contact office if desiring medication assisted therapy. Manage co-morbid conditions. Continue monitoring symptoms - report persistent or worsening/concerni ng symptoms to the office or go to the ER. For mental health CRISIS, please reach out to [phone] ([place] Suicide and Crisis Lifeline), 911, go to the emergency department, or contact the [facility] Crisis Unit/Team. Follow up as scheduled or sooner if necessary. Follow up with PCP and/or other specialists as advised. NEXT STEP: Consider MAT as needed. 10/26/2024 Nutritional counseling (ICD-10 - Z71.3) 10/04/2024 Nutritional counseling (ICD-10 - Z71.3) 12/12/2024 Nicotine dependence (ICD-10 - F17.200) Duration (acute/chronic), stability (controlled/uncont rolled): Chronic, Vapes, daily, has been vaping since 2018 Current medications/effica cy: N/A Previous medication trials: N/A RECOMMENDATIONS: Consider substance cessation therapy as needed - contact office if desiring medication assisted therapy. Manage co-morbid conditions. Continue monitoring symptoms - report persistent or worsening/concerni ng symptoms to the office or go to the ER. For mental health CRISIS, please reach out to [phone] (National Suicide and Crisis Lifeline), 911, go to the emergency department, or contact the [facility] Crisis Unit/Team. Follow up as scheduled or sooner if necessary. Follow up with PCP and/or other specialists as advised. NEXT STEP: Consider MAT as needed. 12/12/2024 Nutritional counseling (ICD-10 - Z71.3) 11/10/2024 Nutritional counseling (ICD-10 - Z71.3) 11/21/2024 Nutritional counseling (ICD-10 - Z71.3) 11/28/2024 Nutritional counseling (ICD-10 - Z71.3) Plan Of Treatment No Information Insurance Providers Payer Name Payer Address Payer Phone Subscriber Number Group Number Insured Name Patient Relationship to Insured Coverage Start Date Coverage End Date [facility] [address] [place] [phone] [id number] 2002 Denita Price Self - patient is the insured 2 Medical (General) History Medical History History ICD Code ADHD Anxiety Depression OCD Scoliosis M41.9 Hyperlipidemia E78.5 Vertigo Orthostatic Hypotension Deviated septum with bone spur on septal wall Surgical History Surgery Date(Month/Year) wisdom teeth extraction 07/2022
--- OUTSIDE RECORDS SUMMARY | 2025-05-20 18:06 | XMS_ITS | Data Portability ---
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 consisting of counseling and review of plan of care. NOTE: Failed previous trial of Xulane patch-skin irritation . [id number] [facility] [address] [address] 07/29/2023 10:10:30 07/29/2023 15:25:16 Abnormal uterine bleeding [id number] 9100 N93.9 UPT neg Today we agreed to update US due to complaints of left sided pelvic pain; and abn bleeding on patch.Decl ashvin any gaps in her BC. The patient and I discussed the various causes of abnormal uterine bleeding, including polyps, fibroids, hyperplasi a, atypia, anovulatio n, etc. We reviewed the typical evaluation with labs, pelvic US and possible endometria l biopsy. Briefly discussed the options available for treatment (depending on the results of evaluation ) such as hormonal treatment (OCPs, progestins ), Mirena, endometria l ablation, and surgery. We spent more than 30 minutes face to face. Secondary dysmenorrhea [id number] N94.5 RF sent x 1yrLoves the patch Mastodynia of bilateral breasts [id number] 2588495 N64.4 Suspect this is from hormonal changes leading up to menstrual cycle.Exam displays bilateral breast tenderness on exam.Under standing verbalized and no further questions. Time spent in visit is a total of 15 mins with at least 50% of visit consisting of counseling and review of plan of care. [id number] Reji Henley MD [place] [address],[place] [address] 08/03/2023 10:27:02 08/03/2023 11:22:51 Irregular periods 50397892 N92.6 [id number] Felisa Ritchie [facility] [address],[place] [address] 11/25/2023 17:07:45 11/25/2023 17:54:11 Gynecologic examination 64859496 Z01.419 Z11.3 Z11.8 Take Calcium with Vitamin D 1200mg daily if not receiving in daily diet. It is strongly advised to have an annual flu shot and up can obtain at most pharmacies . If you have not had a TDap shot in the last 10 years you should obtain one as well. Discussed with patient & provided with informatio n regarding Gardisil vaccine to prevent the 4 strains for HPV that cause cervical cancer if under age 26. Encourage safe sexual practices, to use condoms and limit partners if not already in a monogamous relationsh ip. Do monthly self breast exams. Have mammogram yearly or every other year depending on family history. BRCA testing is now available for patients with strong genetic history of female cancer. If interested contact the office. Engage in daily exercise of low impact aerobic exercise 45-60 minutes 4-5 times weekly. Avoid tobacco and illicit drugs as well as using moderation with alcohol intake less than 1-2 8 oz beverages daily. This lifestyle behavior pattern will lead to less health conditions and longer life span. If BMI greater than 25 weight watchers or dietary consult advised. Patient received above instructio ns, and questions have been answered. If you have any questions please call or respond to this email. Patient was made aware of the patient portal and may obtain a paper copy of today's plan if desired.Misael white sentSTD Screen sentGeneti c Screen discussedC olon Screen naDexa Screen naRoutine Labs na Secondary dysmenorrhea 10965801 N94.5 RF sent x 1yrLoves the patch Labial cyst [id number] N9 0.7 Exam revealed left labia minora cystPainfu l, approx 1cm in size.Rx sent Counseled on medication R/B's, Most common side effects, & use. All questions were answered to patient satisfacti on. Vaginitis 86418378 N76.0 Suspect yeast one examRx sent Counseled on medication R/B's, Most common side effects, & use. All questions were answered to patient satisfacti on. [id number] VALARIE Will [place] [address] [address] 06/27/2024 16:56:21 06/27/2024 17:30:29 Contraception care management [id number] Z30.9 Irregular periods 965986 07 N92.6 discussed recent irregular period likely d/t the change in patchrefil ls of twirla sent, likes this method of BCdeclined STI screennoti fy the office if irregulari ties return Time spent in visit is a total of 15 mins with at least 50% of visit consisting of counseling and review of plan of care. Secondary dysmenorrhea 11719626 N94.5 Health Concerns Section Related Observation LastModified by Organization Detai ls LastModified Time None Recorded Concern Status LastModified by Organization Details LastModified Time None Recorded Advance Directives Directive N: Payers Insurance Date Sequence Insurance Name Policy Number Policy Burrows Covered Member ID Burrows Member ID Guarantor Name 03/13/2025 1 [facility] IN[facility] 234 BEDS AT THE [facility] [place] B[employer]EFIT [employer]AN [facility] INCLUDE 234 BEDS AT THE [facility] [id number] Denita Price [id number] Denita Price Notes Date Note Type Note Provider Name and Address Organization Details Recorded Time 01/22/20 23 text/htm l ROS as noted in the HPI Here today for medication check of Twirla. Felisa Ritchie, [facility]- [address], [place], [address], [facility] 01/21/2023 15:14:34 07/29/19 24 text/htm l Beer - Abnormal BleedingReported by PatientHPIFor associated symptoms, patient reportspelvic pain (lower left)but reportsno dysmenorrhea,no abdominal pain,no dyspareunia,no fatigue,no dizziness,no anemia/iron supplements,no shortness of breath, andno cp/palpitations. For onset/timing, patient reportspast 2 cycles (period blood is more brown than bright red; some brown clots. currently on bc patch). For duration, patient reports7-10 days/month. For quality, patient reportslight. For context, patient reportscurrent contraception: (bc patch).Neg pain of abd/flankNeg urinary sx'sNeg GI sx'sNeg N/V/F/C/DNeg Vag d/c, odor, irritation, itchingROS as noted in the HPI Here today also for breast tenderness x >1mos BilateralFeel kind of swollen.Just got off her cycleOn her OCP patch Breast ROS: Neg Nipple discharge Neg Skin discoloration or texture changes Neg Breast Lump/Mass Neg Family Hx of breast cancer/other cancers ++ Tenderness/pain Neg Trauma to breast Neg Under-wire or ill fitting bras Neg notable asymmetry of breasts Felisa Ritchie [facility]- [address], [place], [address], [facility] 07/29/2023 15:19:05 11/25/19 24 text/htm l Annual GYNReported by PatientGenitourinary symptomsFor menstrual cycle, patient reportsnormal menses. For urinary symptoms, patient reportsno hematuriaandno incontinence. For vulva, patient reportsno genital lesion. For vagina, patient reportsnormal vaginal discharge.Breast symptomsFor breast, patient reportsno breast pain,no breast lump, andno nipple discharge.ContraceptionFor current contraception, patient reportssatisfied with current contraceptionandtransdermal patch.Endocrine symptomsFor sexual complaints, patient reportsno sexual complaints,no pain during intercourse, andnormal libido. For menopausal symptoms, patient reportsno menopausal symptomsandnormal vaginal lubrication.Psychological symptomsFor psychological symptoms, patient reportsno depression,no anxiety, andno pmdd.Preventative measuresFor preventive measures, patient reportsencourage self breast examination,encourage regular exercise,encourage no tobacco use,encourage regular mammograms starting age 40, andfollowed with yearly pap smears. Felisa Ritchie [facility]- [address], [place], [address], [facility] 11/25/2023 17:30:44 06/27/20 24 text/htm l Beer - Abnormal BleedingReported by Patient 23yopresents for evaluation of irregular bleedingBC - Patch, was on twirla, switched to generic patch and had a 2 week long period. Is now back on twirla and having no current issues with bleeding.would like to continue with twirla for BC neg d/c, odorsneg pelvic painneg n/v/f VALARIE Will [address], [place], [address], [place] [facility] 06/27/2024 17:29:16 OBGyn Episode No OBEpisode recorded.
--- OUTSIDE RECORDS SUMMARY | 2025-05-20 18:06 | XMS_ITS | Clinical Summary ---
Author Organization [facility] [place] Address [address] [place] [address] Care Team Providers Care Bag Liner Name Role Phone Kajal Lyon MD Primary Care Provider [phone] Allergies Active Allergy Reactions Criticality Noted Date Comments Blueberry Rash Medium 01/07/2023 Cashew Nut Abdominal Pain Low 12/02/2023 Kiwi Anaphylaxis High 01/07/2023 Methylphenidate Hallucination,Other (See Comments) Medium 02/27/2022 Patient reports hallucinations Venlafaxine Hypotension Medium 01/30/2025 Medications multivitamin,tx-i ezequiel-ca-min (THERA-M) 27-0.4 mg TabletIndications :Low ferritin Take 1 Tablet by mouth daily. 4 Active Sodium Chloride 1,000 mg Tablet, Soluble Take 500 mg by mouth 2 times daily. 4 Active cariprazine (Vraylar) 4.5 mg Capsule capsule 1 capsule Orally once daily 30 Capsule 1 5 Active ALPRAZolam (XANAX) 1 mg tablet Take 1 tablet by mouth nightly to assist with sleep. Can also take 0.5-1 tablet by mouth during the day to assist with SEVERE anxiety NEEDED. MUST LAST DAYS! 35 Tablet 01/14/2025 11:11 AM CDT 5 Active FLUoxetine (PROzac) 40 mg capsule Take 1 Capsule (40 mg) by mouth daily. 30 Capsule 1 5 Active doxepin (SILENOR) 3 mg Tablet Take 1 tablet by oral route once nightly at bedtime 30 Tablet 1 05/08/2025 4:22 PM CDT 5 Active amphetamine-dextr oamphetamine (ADDERALL XR) 5 mg Extended Release 24 hour capsule Take 1 capsule by oral route once daily in the morning 30 Capsule 5 Active levonorgestreL-et hinyl estrad (Twirla) 120-30 mcg/24 hr Patch WeeklyIndications :Encounter for initial prescription of transdermal patch hormonal contraceptive device Apply 1 Patch to skin as directed every 7 days. 3 Patch 11 5 Active amphetamine-dextr oamphetamine (ADDERALL XR) 5 mg Extended Release 24 hour capsule Take 1 capsule by oral route once daily in the morning 30 Capsule 03/07/2025 3:28 PM CDT 5 04/24/20 25 Discontin ued(Reord er) Active Problems Problem Noted Date Diagnosed Date Orthostatic hypotension 01/27/2024 Chronic constipation 08/26/2023 Mixed hyperlipidemia 08/26/2023 Bipolar affective disorder in remission 07/28/19 24 Resolved Problems Problem Noted Date Diagnosed Date Resolved Date Injury of right ankle 03/05/20222022 Encounters Date Type Department Care Team Description 05/18/2025 Telephone [facility] Clinical Support [id number] [facility] [address] [place] [address] Maile Mack RN PA 05/16/2025 Telephone [facility] Clinical Support [id number] [facility] [address] [place] [address] Chio Yen NP PA (TWIRLA) (PLAN EXCLUSION) 05/11/2025 Results Follow-Up [facility] JOB TRAINING SPECIALIST [place] [id number] [facility] [address] [place] [address] Chio Yen NP GC/CHLAMYDIA/TRICHOMO EFFIE, UROGENITAL 05/10/2025 11:30 AM CDT Office Visit [facility] JOB TRAINING SPECIALIST [place] [id number] [facility] [address] [place] [address] Chio Yen NP Pelvic pain in female (Primary Dx); Negative test; Encounter for initial prescription of transdermal patch hormonal contraceptive device 05/01/2025 External Device Data STL ABSTRACTION Provider, Abstract 03/20/2025 External Device Data ST[facility] ABSTRACTION Provider, Abstract 03/06/2025 External Device Data STL ABSTRACTION Provider, Abstract from Last 3 Months Family History Medical History Relation Name Comments No Known Problems Father Hyperlipidemia Half-Sister 1 Hyperlipidemia Half-Sister 2 Spina bifida Half-Sister 2 No Known Problems Maternal Grandfather Hodgkin's lymphoma Maternal Grandmother Tia Peace Thyroid Disease Maternal Grandmother Tia Peace COPD Mother Vidya Peace High Cholesterol Mother Vidya Peace Hyperlipidemia Mother Vidya Peace Other Mother Vidya Peace spinal degenter tive disorder Liver Disease Paternal Grandfather Diabetes Paternal Grandmother Yuliana Price Breast Cancer Neg Hx Colon Cancer Neg Hx Ovarian Cancer Neg Hx Relation Name Status Comments Father Alive Half-Sister 1 Alive Half-Sister 2 Alive Maternal Grandfather Maternal Grandmother Tia Peace Mother Vidya Peace Alive Paternal Grandfather Alive Paternal Grandmother Yuliana Price Alive Social History Tobacco Use Types Packs/Day Years Used Date Smoking Tobacco: Never Smokeless Tobacco: Never Tobacco Cessation:Counseling Given: Not Answered Alcohol Use Standard Drinks/Week Comments Yes 0 [...] Sign Reading Time Taken Comments Blood Pressure 99/65 05/10/2025 11:26 AM CDT Pulse 101 05/10/2025 11:26 AM CDT Temperature 36.7 C (98 F) 11/23/2024 2:21 PM CDT Respiratory Rate 18 11/23/2024 2:21 PM CDT Oxygen Saturation 99% 05/10/2025 11:26 AM CDT Inhaled Oxygen Concentration - - Weight 72.6 kg (160 lb) 05/10/2025 11:26 AM CDT Height 157.5 cm (5' 2) 05/10/2025 11:26 AM CDT Body Mass Index 29.26 05/10/2025 11:26 AM CDT Plan of Treatment Upcoming Encounters Date Type Department Care Team (Late st Contact Info) Description 05/28/2025 9:30 AM 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 METAL FLOORING Appointment [facility] Imaging Services [address] [place] [address] Chio Yen, PATIENT CARE MANAGER [address] [place] [phone] Health Maintenance Due Date Last Done Comments HPV VACCINES (1 - 3-dose series) 2013 DTAP/TDAP/TD VACCINES (1 - Tdap) 2017 HEPATITIS B VACCINES (1 of 3 - 19+ 3-dose series) 2017 HPV/Cotest (21-29) 11/06/2019 Preventative Visit- Commercial 07/19/2024 11/25/2023 , 10/15/2021 INFLUENZA VACCINE (#1) 2025 CERVICAL CANCER SCREENING 11/24/2026 PAP SMEAR 11/24/2026 11/25/2023, 10/15/2021 Procedures Procedure Name Priority Date/Time Associated Diagnosis Comments GC/CHLAMYDIA/TRICHOM ONAS, UROGENITAL Routine 05/10/2025 12:04 PM CDT Pelvic pain in female POC URINALYSIS DIPSTICK AUTOMATED Routine 05/10/2025 12:03 PM CDT Pelvic pain in female POC , URINE Routine 05/10/2025 11:41 AM CDT Negative test from Last 3 Months Results * GC/CHLAMYDIA/TRICHOMONAS, UROGENITAL (05/10/2025 12:04 PM CDT) CHLAMYDIA TRACHOMATIS RNA, TMA, UROGENITAL NOT DETECTED NOT DETECTED [facility] NEISSERIA GONORRHOEAE RNA, TMA, UROGENITAL NOT DETECTED NOT DETECTED [facility] COMMENT INFECTIOUS DISEASE [facility] Comment: The analytical performance characteristics of this assay, when used to test SurePath(TM) specimens have been determined by [employer]. The modifications have not been cleared or approved by the FDA. This assay has been validated pursuant to the CLIA regulations and is used for clinical purposes. For additional information, please refer to https://education.[employer]/faq/PGF418 (This link is being provided for information/ educational purposes only.) TRICHOMONAS VAGINALIS RNA QUAL TMA NOT DETECTED NOT DETECTED [email or web address] [place] Comment: For additional information, please refer to http://[employer]/ faq/Trichomonastma (This link is being provided for informational/ educational purposes only.) [facility]formed [facility]: [facility] [address] [place] [address] Manuel Aguirre MD Urine (Urine, 1st catch) 05/10/2025 12:04 PM CDT 05/10/2025 6:43 PM CDT Chio Yen NP MICROBIOLOGY - GENERAL ORDERABL ES Final Result [facility] [phone] [facility] [address] [place] [address] * (ABNORMAL) POC URINALYSIS DIPSTICK AUTOMATED (05/10/2025 12:03 PM CDT) COLOR UA POC Pale Yellow Pale to Dark Yellow [facility] CLARITY UA POC Clear Clear, Other [facility] GLUCOSE UA POC Negative Negative, Normal [facility] BILIRUBIN UA POC Negative Negative [facility] KETONES UA POC Negative Negative [facility] SPECIFIC GRAVITY UA POC >=1.030 1.000 - 1.030 [facility] BLOOD UA POC Negative Negative [facility] PH UA POC 6.0 5.0 - 8.0 [facility] PROTEIN UA POC Trace(A) Negative [facility] UROBILINOGEN UA POC 0.2 <2.0 mg/dL [facility] NITRITE UA POC Negative Negative [facility] LEUKOCYTE ESTERASE UA POC Negative Negative [facility] KIT LOT NUMBER POC [id number] [facility] KIT EXP DATE POC 05/18/25 [facility] Urine 05/10/2025 12:0 3 PM CDT Chio Yen PATIENT CARE MANAGER POINT OF CARE TESTING Final Res ult [facility] CLIA# [id number] [address] [place] [address] [place] [address] * (ABNORMAL) POC , URINE (05/10/2025 11:41 AM CDT) HCG QUAL URINE POC Negative Negative, Indeterminate [facility] INTERNAL KIT QC POC Pass(A) Pass [facility] KIT LOT NUMBER POC [phone] [facility] KIT EXP DATE POC 10/24/26 [facility] Urine 05/10/2025 11:4 1 AM CDT Chio Yen NP POINT OF CARE TESTING Final Res ult [facility] CLIA# [id number] [address] [place] [address] from Last 3 Months Insurance [facility] RX [employer] PLANS (INTERNAL) [facility] [employer] RX [employer] RX Member Subscriber Plan / Payer (Ef fective for All Dates) Name:Denita Price Relation to Subscriber:Self Name:Denita Price Payer ID:Not on file Group ID:[id number] Type:RX Commercial Address: [address] Care Teams Bag Liner Relationship Specialty Start Date End Date Kajal Lyon MD [address] [place] [address] [place] [address] PCP - General Internal Medicine 12/02/23
[2025-05-20 20:11] LABS: BEDSIDEPREGUCG Negative (Negative)
[2025-05-20 20:11] LABS: Hematocrit 39.9 % (37.0-47.0); Hemoglobin 13.3 g/dL (12.0-15.0); Immature Granulocyte Percent A 0.7 % (0-0.5); Lymphocytes Absolute Auto 2.71 K/mm3 (0.9-3.2); Mean Corpuscular HGB Conc 33.3 g/dl (32-36); Mean Corpuscular Hemoglobin 31.7 pg (26-34); Mean Corpuscular Volume 95.0 fl (80-100); Nucleated Red Blood Cells Absolute Auto 0.000 K/mm3 (0.0-0.012); Nucleated Red Blood Cells Perc 0.0 % (0.0-0.2); Platelet Count Result 317 k/mm3 (150-375); Red Blood Count 4.20 M/mm3 (4.2-5.4); White Blood Count 7.2 K/mm3 (4.5-10.0)
--- OUTSIDE RECORDS SUMMARY | 2025-05-20 20:17 | XMS_ITS | Clinical Summary ---
Author Organization [facility] [employer] Address [address] [place] [address] Care Team Providers Care Property Consultant Name Role Phone Carlos Dickerson APRN-BLOWER OPERATOR Primary Care Provider Source Comments [facility] [employer],non-owned Affiliates and Associated Physician Practices is amultiple site organization consisting of ambulatory clinics and hospital sitesin [place], [place], [place] and [place]. This disclosure is being madepursuant to the Care Everywhere program and may not contain all information available regarding this patient. Last updated 18.[facility] [employer] Allergies Active Allergy Reactions Criticality Noted Date [...] the optimum level for you. Interventions: Insurance [facility] MED[facility] [place] Care Teams Property Consultant Relationship Specialty Start Date End Date Carlos Dickerson, SENIOR ENGINEERING SPECIALIST-BLOWER OPERATOR [address] [place] [phone] PCP - General 03/24/19
--- OUTSIDE RECORDS SUMMARY | 2025-05-20 20:17 | XMS_ITS | Clinical Summary ---
Author Organization [facility] Address [address] [place] [address] Care Team Providers Care Workforce Consultant Name Role Phone Unavailable Primary Care Provider Unavailabl e Social History Tobacco Use Types Packs/Day Years Used Date Smoking Tobacco: Never Assessed Comments Unknown Sex and Gender Information Value Date Recorded Sex Assigned at Not on file Legal Sex Female 10:23 PM INTERACTIVE DEVELOPER Gender Identity Not on file Sexual Orientation [...]
--- OUTSIDE RECORDS SUMMARY | 2025-05-20 20:17 | XMS_ITS | Clinical Summary ---
Author Organization [facility] [employer] [facility] Address [address] [place] [phone] Care Team Providers Care Sealing And Canceling Machine Operator Name Role Phone Kajal Lyon MD Primary Care Provider Allergies Active Allergy Reactions Criticality Noted Date Comments Blueberry Rash Medium 01/07/2023 Cashew Nut Abdominal Pain Low 12/02/2023 Kiwi Anaphylaxis High 01/07/2023 Methylphenidate Hallucination,Other (See Comments) Medium 02/27/2022 Patient reports hallucinations Venlafaxine Hypotension Medium 01/30/2025 Medications multivitamin,tx-i ezeuqiel-ca-min (THERA-M) 27-0.4 mg TabletIndications :Low ferritin Take [...] Type Department Care Team Description 05/18/2025 Telephone [facility] Clinical Support [address] [facility] [address] [place] [address] Maile Mack RN PA 05/16/2025 Telephone [facility] Clinical Support [address] [facility] [address] [place] [address] Chio Yen NP PA (TWIRLA) (PLAN EXCLUSION) 05/11/2025 Results Follow-Up [facility] LIFE INSURANCE UNDERWRITER [place] [address] [facility] [address] [place] [phone] Chio Yen NP GC/CHLAMYDIA/TRICHOMO EFFIE, UROGENITAL 05/10/2025 11:30 AM CDT Office Visit [facility] LIFE INSURANCE UNDERWRITER [place] [address] [facility] [address] [place] [phone] Chio Yen NP Pelvic pain in female [...] st Contact Info) Description 05/28/2025 9:30 AM TYPESETTING MACHINE OPERATOR/TENDER Appointment [facility] Imaging Services [address] [place] [address] Chio Yen, CRUISE DIRECTOR [address] [place] [phone] Health Maintenance Due Date Last Done Comments [...] UROGENITAL NOT DETECTED NOT DETECTED [facility] NEISSERIA GONORRHOEAE RNA, TMA, UROGENITAL NOT DETECTED NOT DETECTED [facility] COMMENT INFECTIOUS DISEASE [facility] Comment: The analytical performance characteristics of this assay, when used to test SurePath(TM) specimens have been determined by [facility]. The modifications have not been cleared or approved by the FDA. This assay has been validated pursuant to the CLIA regulations and is used for clinical purposes. For additional information, please refer to https://education.Tube2Tone/faq/QTD107 (This link is being provided for information/ educational purposes only.) TRICHOMONAS VAGINALIS RNA QUAL TMA NOT DETECTED NOT DETECTED [facility] [place] Comment: For additional information, please refer to http://iCopyright.Tube2Tone/ faq/Trichomonastma (This link is being provided for informational/ educational purposes only.) Test Performed at: [facility] [address] [place] [address] Manuel Aguirre MD Urine (Urine, 1st catch) 05/10/2025 12:04 PM CDT 05/10/2025 6:43 PM CDT Chio Yen NP MICROBIOLOGY - GENERAL ORDERABL ES Final Result [facility] [phone] [facility] [address] [place] [address] * (ABNORMAL) POC URINALYSIS DIPSTICK AUTOMATED (05/10/2025 12:03 PM CDT) COLOR UA POC Pale Yellow Pale to Dark Yellow [facility] CLARITY UA POC Clear Clear, Other [facility] GLUCOSE UA POC Negative Negative, Normal [facility] BILIRUBIN UA POC Negative Negative [facility] KETONES UA POC Negative Negative [facility] SPECIFIC GRAVITY UA POC >=1.030 1.000 - 1.030 [facility] BLOOD UA POC Negative Negative [facility] PH UA POC 6.0 5.0 - 8.0 [facility] PROTEIN UA POC Trace(A) Negative [facility] UROBILINOGEN UA POC 0.2 <2.0 mg/dL [facility] NITRITE UA POC Negative Negative [facility] LEUKOCYTE ESTERASE UA POC Negative Negative [facility] KIT LOT NUMBER POC [phone] [facility] KIT EXP DATE POC 05/18/25 [facility] Urine 05/10/2025 12:0 3 PM CDT Chio Yen CRUISE DIRECTOR POINT OF CARE TESTING Final Res ult [facility] CLIA# [id number] [address] [place] [address] [place] [id number] * (ABNORMAL) POC , URINE (05/10/2025 11:41 AM CDT) HCG QUAL URINE POC Negative Negative, Indeterminate [facility] INTERNAL KIT QC POC Pass(A) Pass [facility] KIT LOT NUMBER POC [phone] [facility] KIT EXP DATE POC 10/24/26 [facility] Urine 05/10/2025 11:4 1 AM CDT Chio Yen NP POINT OF CARE TESTING Final Res ult [facility] CLIA# [id number] [address] [place] [address] from Last 3 Months Insurance [employer] [facility] RX [employer] PLANS (INTERNAL) [facility] Plans RX [employer] Express RX [employer] RX Member Subscriber Plan / Payer (Ef fective for All Dates) Name:Denita Price Relation to Subscriber:Self Name:Denita Price Payer ID:Not on file Group ID:[id number] Type:RX Commercial Address: [address] Care Teams Sealing And Canceling Machine Operator Relationship Specialty Start Date End Date Kajal Lyon MD [address] [place] [address] [place] [address] PCP - General Internal Medicine 12/02/23
--- OUTSIDE RECORDS SUMMARY | 2025-05-20 20:17 | XMS_ITS | Clinical Summary ---
Author Organization [facility] Address [address] [place] [address] Care Team Providers Care Crm Manager Name Role Phone Miscellaneous, Not In [...] on file Legal Sex Female 11:00 AM SYSTEM VALIDATION ENGINEER Gender Identity Not on file Sexual Orientation [...] Varicella Vaccines Completed 03/11/2010, 01/05/2001 Care Teams Crm Manager Relationship Specialty Start Date End Date Miscellaneous, Not In File PCP - General 06/18/23
--- OUTSIDE RECORDS SUMMARY | 2025-05-20 20:17 | XMS_ITS | Encounter Summary ---
Author Organization [facility] Address [address] [place] [address] Care Team Providers Care Wage And Hour Investigator Name Role Phone Kajal Lyon MD Primary Care Provider [phone] Reason for Visit * Reason Onset Date Comments SAMSON CESPEDES) 05/16/2025 PLAN EXCLUSION Encounter Details Date Type Department Care Team (Late st Contact Info) Description 05/16/2025 Telephone [facility] Clinical Support [address] [place] [phone] Chio Yen, INFECTION PREVENTION SPECIALIST [address] [place] [address] SAMSON CESPEDES) (PLAN EXCLUSION) Social [...] st Contact Info) Description 05/28/2025 9:30 AM CLIENT SUPPORT MANAGER Appointment [facility] Imaging Services [address] [phone] Chio Yen, INFECTION PREVENTION SPECIALIST [address] [place] [address] documented as of this encounter Visit Diagnoses Not on filedocumented in this encounter Additional Health Concerns Assessment Noted Time PHQ-9 Depression Total Score: 4 01/27/20 24 9:00 AM CDT documented as of this encounter Care Teams Wage And Hour Investigator Relationship Specialty Start Date End Date Kajal Lyon MD [address] [place] [phone] PCP - General Internal Medicine 12/02/23 documented as of this encounter
[2025-05-20 20:21] LABS: Add Urine Microscopic? NO; Appearance Urine Clear (Clear); Glucose Urine UA Negative (Negative); Leukocyte Esterase Ur Negative LEU/UL (Negative); Nitrate Urine Negative (Negative); Specific Grav Ur 1.011 (1.001-1.035)
[2025-05-20 20:28] LABS: Alanine Aminotransferase 22 U/L (6-35); Albumin Level 4.2 g/dL (3.5-5.1); Alkaline Phosphatase 54 U/L (38-126); Anion Gap 7 mmol/L (4-12); Aspartate Amino Transferase 24 U/L (14-36); Bilirubin,Total 0.4 mg/dL (0.2-1.3); Blood Urea Nitrogen 14 mg/dL (7-17); Calcium 9.5 mg/dL (8.4-10.2); Carbon Dioxide 24 mmol/L (22-30); Chloride 106 mmol/L (98-107); Estimated CRCL calculation 88 ml/min; Estimated Glomerular Filt Rate > 60; Glucose 101 mg/dL (65-110); Lipase 86 U/L (23-300); Potassium 4.4 mmol/L (3.4-5.0); Sodium 137 mmol/L (137-145); Total Protein 7.6 g/dL (6.3-8.2)
--- NOTE | 2025-05-20 20:52 | ED.ABDPAIN ---
HPI - Abdominal Pain General Chief Complaint: Abdominal Pain Stated Complaint: abd pain Time Seen by Provider: 05/20/25 19:57 History of Present Illness HPI narrative: Patient's is a 24-year-old female who presents to the ER with left lower quadrant abdominal pain. She reports she has not had a regular menstrual period since February 2025. Patient reports she has a history of ovarian cyst and is concerned that she has had another one rupture. She denies any blood in her urine, urinary symptoms, recent fevers. Patient does endorse intermittent left flank pain. She endorses a history of extensive mental health issues and is on control. Related Data Home Medications ?Medication ?Instructions ?Recorded ?Confirmed ?Last Taken ?Type levonorgestrel 120 mcg-e.estradiol 1 patch transdermal Q7D 04/13/23 04/13/23 Unknown History 30 mcg/24 hr weekly transderm patch (Twirla) meclizine 25 mg tablet 25 mg PO TID 04/13/23 04/13/23 Unknown History prochlorperazine maleate 10 mg 10 mg PO Q8H PRN 04/13/23 04/13/23 Unknown History tablet (Compazine) Allergies Allergy/AdvReac Type Severity Reaction Status Date / Time blueberry Allergy Intermediate Rash Verified 05/20/25 18:05 methylphenidate (From Allergy Intermediate Hallucinati Verified 05/20/25 18:05 Concerta) ng kiwi Allergy Unknown Hallucinati Verified 05/20/25 18:05 ng Review of Systems Review of Systems: All systems reviewed & are unremarkable except as noted in HPI and below PMFSH Past Medical History Medical History Deviated septum Chronic sinusitis Anxiety STD exposure Surgical History Surgical History [place] teeth extracted (~07/2022) Family History Family History Grandparent Cerebrovascular accident Diabetes mellitus Cancer Heart disease Thyroid disorder Father Depression Anxiety Alcoholism Mother Alcoholism Anxiety Depression Asthma Sibling Alcoholism Anxiety Asthma Depression Social History Social History Social History: Caffeine-coffee Smoking status: Smoker, status unknown Tobacco type: e-cigarettes/vaping Alcohol intake: current Alcohol use details: occasionally Substance use: never Substance use type: does not use Lack of Transportation: No Lack of Food: Never True Current Housing: I Have Housing Concerned About Future Housing: No Difficulty Paying Gas/Electric Bills: No Difficulty Paying for Meds: No Currently Unemployed: No Education: High School Diploma/GED Difficulty w/ Childcare or Family Care: No Agree to blood products: Yes Exam Narrative: GENERAL: Well appearing, well-nourished, non-toxic, in no acute distress. HEAD: Normocephalic, atraumatic. NECK: Supple. No adenopathy, no masses. RESPIRATORY: Airway patent, respirations nonlabored. Clear to auscultation bilaterally, no rales, rhonchi, wheezing. CARDIOVASCULAR: Regular rate and rhythm without murmurs, rubs, or gallops. Peripheral pulses 2+ and equal bilaterally. ABDOMINAL: Soft, tender left lower and left upper quadrant, nondistended, no hepatosplenomegaly. Normoactive BS. MUSCULOSKELETAL: Moves all extremities. Strength/ROM intact without gross deformities. SKIN: Warm, dry, normal color. No rashes. NEURO: A&O X3. Speech clear. Cranial nerves II-XII intact. No ataxic movements. PSYCHIATRIC: Appropriate mood and affect. Normal interaction. Course Vital Signs Vital signs: Vital Signs Temperature 36.8 C 05/20/25 18:06 Pulse Rate 76 05/20/25 18:06 Respiratory Rate 16 05/20/25 18:06 Blood Pressure 110/72 05/20/25 18:06 Pulse Oximetry 100 05/20/25 18:06 Oxygen Delivery Room Air 05/20/25 18:06 Temperature 36.8 C 05/20/25 18:06 Pulse Rate 76 05/20/25 18:06 Respiratory Rate 16 05/20/25 18:06 Blood Pressure 110/72 05/20/25 18:06 Pulse Oximetry 100 05/20/25 18:06 Oxygen Delivery Room Air 05/20/25 18:06 MDM - Abdominal Pain MDM Narrative Medical decision making narrative: Patient's is a 24-year-old female who presents to the ER with left lower quadrant abdominal pain. She reports she has not had a regular menstrual period since February 2025. Patient reports she has a history of ovarian cyst and is concerned that she has had another one rupture. She denies any blood in her urine, urinary symptoms, recent fevers. Patient does endorse intermittent left flank pain. She endorses a history of extensive mental health issues and is on control. Labs Ordered: CBC, CMP, lipase, UA, beta hCG Imaging Ordered: CT abdomen pelvis with contrast Medications Ordered: None necessary Results: Patient's blood work is unremarkable for any acute abnormalities. Her urinalysis does not indicate any acute abnormalities. Patient's beta hCG levels are negative. MDM: Patient was offered a CT abdomen pelvis to rule out other indicators her of her abdominal pain but she declined. She reports she came to this facility for an ultrasound because that is what her OBGYN recommended. It was explained to patient that since her test was negative an emergent ultrasound was not indicated. Patient continued to decline the need for CT scan and reports the Midol she took at home is helping relieve her symptoms. She is requesting to be discharged home at this time. All questions answered. Vital signs stable at time of discharge. Differential Diagnosis Differential diagnosis: Likely abdominal pain and other (Intrauterine , ectopic , urinary tract infection) Lab Data Attestation: I reviewed the patient's lab results. 05/20/25 20:05 05/20/25 20:05 Labs: Lab Results 05/20/25 05/20/25 Range/Units 19:57 20:05 WBC 7.2 (4.5-10.0) K/mm3 RBC 4.20 (4.2-5.4) M/mm3 Hgb 13.3 (12.0-15.0) g/dL Hct 39.9 (37.0-47.0) % MCV 95.0 (80-100) fl MCH 31.7 (26-34) pg MCHC 33.3 (32-36) g/dl RDW 12.1 (11.5-14.5) % Plt Count 317 (150-375) k/mm3 MPV 9.5 (7.4-10.4) fl Immature Gran % (Auto) 0.7 H (0-0.5) % Neut % (Auto) 50.9 (45.5-73.1) % Lymph % (Auto) 37.5 (18.3-44.2) % Nobles % (Auto) 9.3 H (2.6-8.5) % Eos % (Auto) 0.8 (0-4.4) % Baso % (Auto) 0.8 (0.2-1.2) % Lymph # (Auto) 2.71 (0.9-3.2) K/mm3 Nobles # (Auto) 0.7 H (0.1-0.6) K/mm3 Eos # (Auto) 0.1 (0-0.3) K/mm3 Baso # (Auto) 0.1 (0.0-0.1) K/mm3 Abs Immat Gran (auto) 0.05 H (0.00-0.031) K/mm3 Absolute Neuts (auto) 3.7 (1.3-6.7) K/mm3 Absolute Nucleated RBC 0.000 (0.0-0.012) K/mm3 Nucleated RBC % 0.0 (0.0-0.2) % Sodium 137 (137-145) mmol/L Potassium 4.4 (3.4-5.0) mmol/L Chloride 106 (98-107) mmol/L Carbon Dioxide 24 (22-30) mmol/L Anion Gap 7 (4-12) mmol/L BUN 14 (7-17) mg/dL Creatinine 0.79 (0.7-1.0) mg/dL Estim Creat Clear Calc 88 ml/min Estimated GFR > 60 (59 - ) Glucose 101 (65-110) mg/dL Calcium 9.5 (8.4-10.2) mg/dL Total Bilirubin 0.4 (0.2-1.3) mg/dL AST 24 (14-36) U/L ALT 22 (6-35) U/L Alkaline Phosphatase 54 (38-126) U/L Total Protein 7.6 (6.3-8.2) g/dL Albumin 4.2 (3.5-5.1) g/dL Lipase 86 (23-300) U/L Beta HCG, Quant < 2.39 mIU/ML Urine Color Yellow (Yellow) Urine Appearance Clear (Clear) Urine pH 6.0 (5.0-9.0) Ur Specific [place] 1.011 (1.001-1.035) Urine Protein Negative (Negative) mg/dL Urine Glucose (UA) Negative (Negative) mg/dL Urine Ketones Negative (Negative) mg/dL Ur Blood (Man) Negative (Negative) Urine Nitrate Negative (Negative) Urine Bilirubin Negative (Negative) Urine Urobilinogen 0.2 (<2.0) mg/dL Leukocyte Esterase Rfl Negative (Negative) SUSHIL/UL POC Urine HCG, Qual Negative (Negative) Discharge Plan Discharge Clinical Impression: Abdominal pain Patient Disposition: Home Condition: Stable Instructions: Antibiotic Form, Abdominal Pain (ED) Additional Instructions: Please return to the ER with any worsening symptoms. Follow-up with primary care provider for further treatment and evaluation. Take all medications as prescribed, including regularly scheduled medications. You may take Tylenol and/or ibuprofen for pain control. Patient Language: Unknown Prescriptions: No Action meclizine 25 mg tablet 25 mg PO TID Twirla 120-30 mcg/24 hr patch weekly 1 patch transdermal Q7D Rx Instructions: apply once weekly for 3 weeks of a 4-week cycle prochlorperazine maleate [Compazine] 10 mg tablet 10 mg PO Q8H PRN Follow-up/Referrals: PHYSICIAN,SUPERVISOR SHIP MAINTENANCE SERVICES [Primary Care Provider, Internal Medicine] Time of Disposition: 22:51
[2025-05-20 21:50] LABS: Beta HCG Quantitative < 2.39 mIU/ML
[2025-05-20 22:55] VITALS: BP 130/68; PULSE 85; RESP 16; O2SAT 99
== END 2025-05-20 22:55 | disposition home or self-care (01) ==
PROVIDERS: Emergency Provider Registered Nurse
DX: R10.32 Left lower quadrant pain (principal); F17.290 Nicotine dependence, other tobacco product, uncomplicated
CPT/HCPCS: 36415; 80053; 81003; 81025; 83690; 84702; 85025; 99283